=== PATIENT | female | born 1935 | race Caucasian/White ===

== ENCOUNTER 2018-08-10 14:45 | Emergency (ER) | payer MEDICARE, BC ==
[~2018-08-10] VITALS: Ht 154.9 cm; Wt 68.9 kg
[~2018-08-10 14:45] MED LIST: ALENDRONATE SOD70 MG PO; B-122500 MCG PO; CALCIUM 500+D1 EACH PO; CELEBREX100 MG PO; CENTRUM SILVER1 EAC3; CYMBALTA30 MG PO; DEXILANT60 MG PO; FUROSEMIDE40 MG PO; GAVISCON 80-141 EACH; KEFLEX500 MG PO; LASIX20 MG PO; METHIMAZOLE5 MG PO; MULTAQ 400MG T400 MG PO; MULTAQ400 MG PO; TOVIAZ8 MG PO; VITAMIN D400 UNIT PO; XARELTO10 MG PO
--- OUTSIDE RECORDS SUMMARY | 2018-08-10 14:48 | XMS REPORT ---
Author Author [facility] Address Unknown Phone Unavailable Care Team Providers Care Manufacturing Team Leader Name Role Phone Leticia FREGOSO Unavailable Unavailable Problems This patient has no known problems. Allergies, Adverse Reactions, Alerts This patient has no known allergies or adverse reactions. Medications This patient has no known medications. Results Test Description Test Time Test Comments Text Results Atomic Results Result Comments CT BRAIN WO [facility] [address] [address] Patient Name: JUDIT MUELLER MR #: [id number] : 1935 Age/Sex: 81/F Req #: [id number] Adm Physician: Ordered by: TERRI EDGAR FORENSIC MATERIALS ENGINEER Report #: [id number] Location: ER Room/Bed: Procedure: [id number] CT/CT BRAIN WO Exam Date: 05/12/17 Exam Time: 1711 REPORT STATUS: Signed Examination: CT BRAIN WITHOUT CONTRAST History:Falls. Head injury. Comparison studies:Head CT performed May 30, 2016. Technique: Axial images were obtained from the skull base to the vertex. Coronal and sagittal images reconstructed from the axial data. Intravenous contrast: None Findings: Scalp: No abnormalities. Bones: No fractures, blastic or lytic lesions. Brain sulci: Mild volume loss or age. Ventricles: No hydrocephalus. Extra-axial space: No abnormalities. Parenchyma: Again demonstrated are patchy areas of hypoattenuation in the periventricular and subcortical white matter, nonspecific. No masses, hemorrhage, or acute cortical based vascular insults. Sellar/suprasellar region: No abnormalities. Craniocervical junction: Patent foramen magnum. No Chiari one malformation. Incidental findings: Atherosclerotic calcification of the cavernous and supraclinoid internal carotid and V4 segments of the bilateral vertebral arteries.. Impression: 1. No new or acute intracranial abnormalities. No change from prior head CT performed May 30, 2016. 2. Unchanged moderate chronic microvascular ischemic change. 3. Unchanged mild volume loss. Signed by: Dr. Margaux Dillon M.D. on 05/12/2017 5:37 PM Dictated By: MARGAUX FISHMAN MD 36 Transcribed By: CARLOS on 05/12/171736 COPY TO: TERRI EDGAR NP CT MAXIO FAC/PARANAS WO [place] [address] Patient Name: JUDIT MUELLER MR #: [id number] : 1935 Age/Sex: 81/F Req #: [id number] Adm Physician: Ordered by: TERRI EDGAR NP Report #: [id number] Location: ER Room/Bed: Procedure: [id number] CT/CT MAXIO FAC/PARANAS WO Exam Date: 05/12/17 Exam Time: 1711 REPORT STATUS: Signed Examination: CT Face without Contrast History:Fall. Facial injury. Comparison studies: None Technique: Axial images were obtained through the maxillofacial region. Coronal and sagittal reconstructions obtained from the axial data. Intravenous contrast: None Findings: Soft tissues: No abnormalities. Bones: No fractures or bony abnormalities. Orbits: Globes: Intact Extra or intraconal abnormalities: None. Paranasal sinuses: Mild inflammatory mucosal thickening of the left maxillary sinus. Nasal cavity: Patent. No septal deviation. IMPRESSION: 1. No acute facial abnormality. 2. Mild inflammatory mucosal thickening of the left maxillary sinus. Signed by: Dr. Margaux Dillon M.D. on 05/12/2017 5:38 PM Dictated By: MARGAUX FISHMAN MD 37 Transcribed By: CARLOS on 05/12/171737 COPY TO: TERRI EDGAR FORENSIC MATERIALS ENGINEER PELVIS AP 1-2 VIEWS [place] [address] Patient Name: JUDIT MUELLER MR #: [id number] : 1935 Age/Sex: 81/F Req #: [id number] Adm Physician: Ordered by: TERRI EDGAR FORENSIC MATERIALS ENGINEER Report #: [id number] Location: ER Room/Bed: Procedure: [id number] DX/PELVIS AP 1-2 VIEWS Exam Date: 05/12/17 Exam Time: 1700 REPORT STATUS: Signed PROCEDURE: X-RAY PELVIS, AP VIEW COMPARISON: None. INDICATIONS: FALL FINDINGS: There are no fractures, dislocations, lytic or blastic lesions. 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 Degenerative changes at L4-L5 and L5-S1 incidentally noted. CONCLUSION: No acute osseous abnormality. Kal Chatterjee M.D. Dictated by: Kal Chatterjee M.D. on 05/12/2017 at 18:00 Electronically approved by: Kal Chatterjee M.D. on 05/12/2017 at 18:00 Dictated By: ROMINA CHATTERJEE MD, MD 99 Transcribed By: CHAS on 05/12/17 1800 COPY TO: TERRI EDGAR NP CT CERVICAL SPINE WO [place] [address] Patient Name: JUDIT MUELLER MR #: [id number] : 1935 Age/Sex: 81/F Req #: [id number] Adm Physician: Ordered by: TERRI EDGAR NP Report #: [id number] Location: ER Room/Bed: Procedure: [id number] CT/CT CERVICAL SPINE WO Exam Date: 05/12/17 Exam Time: 1711 REPORT STATUS: Signed Examination: CT CERVICAL SPINE WITHOUT CONTRAST HISTORY:Fall. Neck pain. COMPARISON:None. TECHNIQUE: Multidetector helical axial images were obtained without contrast from the foramen magnum to T1. Coronal and sagittal reformatted images were done. Bone and soft tissue windows were evaluated. FINDINGS: Alignment:Normal alignment with reversal of normal lordosis centered at C5. Vertebrae: Normal height and density. No acute fracture, infection or neoplasm. Disc space heights: Normal height. Caliber of spinal canal: Developmentally normal. Posterior fossa and craniocervical junction: Foramen magnum patent. No Chiari 1 malformation. Soft tissues: No abnormality. Degenerative changes: Bilateral facet arthropathy from C3 through C6 on the right and C2 through C4 on the left. No disc bulge/ herniation or canal stenosis. Additional findings: None. IMPRESSION: 1. No acute abnormalities. 2. Mild cervical spondylosis, as above. Signed by: Dr. Margaux Dillon M.D. on 05/12/2017 5:52 PM Dictated By: MARGAUX FISHMAN MD 51 Transcribed By: CARLOS on 05/12/171751 COPY TO: TERRI EDGAR NP KNEE LEFT THREE VIEWS [place] [address] Patient Name: JUDIT MUELLER MR #: [id number] : 1935 Age/Sex: 81/F Req #: [id number] Adm Physician: Ordered by: TERRI EDGAR NP Report #: [id number] Location: ER Room/Bed: Procedure: [id number] DX/KNEE LEFT THREE VIEWS Exam Date: 05/12/17 Exam Time: 1700 REPORT STATUS: Signed PROCEDURE: X-RAY LEFT KNEE, THREE OR MORE VIEWS COMPARISON: None. INDICATIONS: FALL FINDINGS: There are no fractures, subluxations, lytic or blastic lesions. There is no evidence of a joint effusion. Atherosclerotic calcification of the femoral and popliteal arteries. CONCLUSION: No acute osseous abnormality. Kal Chatterjee M.D. Dictated by: Kla Chatterjee M.D. on 05/12/2017 at 18:01 Electronically approved by: Kal Chatterjee M.D. on 05/12/2017 at 18:01 Dictated By: ROMINA CHATTERJEE MD, MD 00 Transcribed By: CHAS on 05/12/171800 COPY TO: TERRI EDGAR NP CHEST SINGLE (PORTABLE) [place] [address] Patient Name: JUDIT MUELLER MR #: [id number] : 1935 Age/Sex: 81/F Req #: [id number] Adm Physician: Ordered by: TERRI EDGAR FORENSIC MATERIALS ENGINEER Report #: [id number] Location: ER Room/Bed: Procedure: [id number] DX/CHEST SINGLE (PORTABLE) Exam Date: 05/12/17 Exam Time: 1700 REPORT STATUS: Signed PROCEDURE: A single AP view of the chest. COMPARISON: [facility], DX, CHEST SINGLE (PORTABLE), 05/30/2016, 19:27. INDICATIONS: FALL FINDINGS: Lines/tubes: None. Dual-lead left- sided cardiac pacemaker. Lungs: The lungs are well inflated and clear. There is no evidence of pneumonia or pulmonary edema. Pleura: There is no pleural effusion or pneumothorax. Heart and mediastinum: The heart and the mediastinum are unremarkable. Atherosclerotic calcifications of the thoracic aorta. Bones: No acute bony abnormality. IMPRESSION: 1. No acute cardiopulmonary disease. Kal Chatterjee M.D. Dictated by: Kal Chatterjee M.D. on 05/12/2017 at 18:03 Electronically approved by: Kal Chatterjee M.D. on 05/12/2017 at 18:03 Dictated By: ROMINA CHATTERJEE MD, MD 02 Transcribed By: CHAS on 05/12/171802 COPY TO: TERRI EDGAR NP FOREARM RIGHT [address] [facility] [place] [address] Patient Name: JUDIT MUELLER MR #: [id number] : 1935 Age/Sex: 81/F Req #: [id number] Adm Physician: Ordered by: TERRI EDGAR FORENSIC MATERIALS ENGINEER Report #: [id number] Location: ER Room/Bed: Procedure: [id number] DX/FOREARM RIGHT 2 VIEW Exam Date: 05/12/17 Exam Time: 1700 REPORT STATUS: Signed PROCEDURE: X-RAY RIGHT FOREARM, TWO VIEWS COMPARISON: None. INDICATIONS: PT FELL TODAY FINDINGS: There are no fractures, dislocations, lytic or blastic lesions. Osteopenia. The soft-tissues are unremarkable. CONCLUSION: No acute osseous abnormality. Kal Chatterjee M.D. Dictated by: Kal Chatterjee M.D. on 05/12/2017 at 18:07 Electronically approved by: Kal Chatterjee M.D. on 05/12/2017 at 18:07 Dictated By: ROMINA CHATTERJEE MD, MD 06 Transcribed By: CHAS on 05/12/171806 COPY TO: TERRI EDGAR FORENSIC MATERIALS ENGINEER
--- NOTE | 2018-08-10 18:45 | Diagnostic Imaging Report ---
EXAMINATION: CHEST 2 VIEWS INDICATION: ^CONGESTION ^[id number] ^[id number] COMPARISON: Chest radiograph 05/12/2017 FINDINGS: PA and lateral views TUBES and LINES: Stable position of the dual-lead pacemaker. LUNGS: Lungs are well inflated. Bilateral perihilar and lower lobes. Bronchial wall thickening, more prominent when compared to prior exam. There is no evidence of pneumonia or pulmonary edema. PLEURA: No pleural effusion or pneumothorax. HEART AND MEDIASTINUM: The cardiomediastinal silhouette is unremarkable. Mild atherosclerotic calcifications of the aortic arch. BONES AND SOFT TISSUES: No acute osseous lesion. Soft tissues are unremarkable. UPPER ABDOMEN: No free air under the diaphragm. Linear hyperdensities in the left upper quadrant and are unchanged. IMPRESSION: Increased bilateral hilar and lower lobe peribronchial wall thickening suggestive of reactive airway disease or viral infection. Signed by: Dr. Charla Donald M.D. on 08/10/2018 6:42 PM
[2018-08-10] MEDS ORDERED: ALBUTEROL/IPRATROPIUM 3 ML NEB NEB ONE (21:00)
== END 2018-08-10 21:55 | disposition home or self-care (01) ==
LOC: ER 14:45
DX: R05 Cough (principal); J20.9 Acute bronchitis, unspecified; I10 Essential (primary) hypertension; E11.9 Type 2 diabetes mellitus without complications; E07.9 Disorder of thyroid, unspecified; K21.9 Gastro-esophageal reflux disease without esophagitis; F41.9 Anxiety disorder, unspecified; F32.9 Major depressive disorder, single episode, unspecified; Z98.0 Intestinal bypass and anastomosis status
CPT/HCPCS: 71046; 99283

== ENCOUNTER 2019-04-18 08:03 | Emergency (ER) | payer MEDICARE, BC ==
[~2019-04-18] VITALS: Ht 154.9 cm; Wt 68.9 kg
--- OUTSIDE RECORDS SUMMARY | 2019-04-18 08:06 | XMS REPORT | Continuity of Care Document ---
Author Author [facility] Address Unknown Phone Unavailable Care Team Providers Care Senior Mortgage Underwriter Name Role Phone Identiv Information Exchange Unavailable Unavailable Problems Problem Status Onset Date Classification Date Reported Comments Source Confusion associated with infection Active Problem 08/11/2018 [facility] Renal insufficiency Active Problem 08/11/2018 [facility] Urinary tract infection Active Problem 08/11/2018 [facility] Medications Medication Details Route Status Patient Instructions Ordering Provider Order Date Source Dronedarone (Multaq 400MG Tablets*) 400 Mg Tab, 400 Mg Oral Twice A Day Active 05/12/2017 [facility] Celecoxib (Celebrex*) 100 Mg Capsule, 200 Mg Oral Daily Active 06/02/2016 [facility] Cephalexin Monohydrate (Keflex) 500 Mg Capsule, 500 Mg Oral Every 12 Hours Active [place] 06/02/2016 [facility] Furosemide (Lasix) 20 Mg Tablet, 20 Mg Oral Every Other Day Active 06/02/2016 [facility] Alendronate Sodium 70 Mg Tablet Mondays Active [facility] Calcium Carbonate/Vitamin D3 (Calcium 500+D Tablet Chew) 1 Each Tab.chew Three Times A Day Active [facility] Cholecalciferol (Vitamin D3) (Vitamin D) 400 Unit Capsule Daily Active [facility] Cyanocobalamin (Vitamin B-12) (B-12) 2,500 Mcg Tab.subl Daily Active [facility] Dexlansoprazole (Dexilant) 60 Mg Cap. Twice A Day Active THERAPEUTIC INTERCHANGE WITH PROTONIX PER [facility] Dronedarone Hydrochloride (Multaq) 400 Mg Tablet Twice A Day Active [facility] Duloxetine Hcl (Cymbalta) 30 Mg Capsule. Twice A Day [facility] Fesoterodine Fumarate (Toviaz) 8 Mg Tab.er.24h Daily [facility] Furosemide 40 Mg Tablet Every Other Day [facility] Methimazole 5 Mg Tablet Daily [facility] Mg Trisilicate/Alh/Nahco3/Aa (Gaviscon 80-14.2 Mg Tab Chew) 1 Each Tab.chew [facility] Mu-Vits-Min Th/Lycopene/Lutein (Centrum Silver Tablet) 1 Each Tablet [facility] Rivaroxaban (Xarelto) 10 Mg Tablet Bedtime [facility] Allergies, Adverse Reactions, Alerts No Known Medication Allergies Immunizations No Data Provided for This Section Results No Data Provided for This Section Pathology Reports No Data Provided for This Section Diagnostic Reports No Data Provided for This Section Consultation Notes No Data Provided for This Section Discharge Summaries No Data Provided for This Section History and Physicals No Data Provided for This Section Vital Signs No Data Provided for This Section Encounters Location Location Details Encounter Type Encounter Number Reason For Visit Attending Provider ADM Date DC Date Status Source Departed Emergency Room [id number] RAFAEL TOWNSEND MD 08/10/2018 08/10/2018 [facility] Procedures Procedure Code Date Perfomer Comments Source X-ray of chest, two views [id number] 08/10/2018 [facility] Assessment and Plan No Data Provided for This Section Plan of Care Plan of Care Date Source Discharge Date 08/10/18 9:55pm Disposition HOME, SELF-CARE Condition at Discharge Stable Instructions/Education Provided Bronchitis (Acute) - Adult Prescriptions See Medication Section Referrals LETY DE LA TORRE MD Order Date: Call for an appointment Address: [address] [place] [address] Additional Instructions/Education Call for follow up appointment to see your medical provider. Take over the counter Motrin or Tylenol medication as needed for comfort. If prescribed medication on discharge, take the medication as prescribed and adhere to the warnings given for medication. discussed at the bedside, drink fluids, rest and return to the emergency department for any fever, shortness of breath, chest pain, abdominal pain, trouble handling oral secretions or any new concerns. 08/10/2018 [facility] Social History Social History Date Source Social History Problem Response Recorded Date/Time Onset Date Status Hx Psychiatric Problems No 05/31/2016 1:50am Not Applicable Not Applicable Hx Eating Disorder No 05/31/2016 1:50am Not Applicable Not Applicable Hx Substance Use Disorder No 05/31/2016 1:50am Not Applicable Not Applicable Hx Depression Yes 05/31/2016 1:50am Not Applicable Not Applicable Hx Alcohol Use No 05/31/2016 1:50am Not Applicable Not Applicable Hx Substance Use Treatment No 05/31/2016 1:50am Not Applicable Not Applicable Hx Physical Abuse No 05/31/2016 1:50am Not Applicable Not Applicable Smoking Status Start Date Stop Date Former smoker 08/10/2018 [facility] Family History No Data Provided for This Section Advance Directives Order Name Results Value Date Source Advance Directives Advance Directives Directive Response Recorded Date/Time Does the patient have an advance directive? Yes 08/10/18 7:20pm If yes, is advance directive on file with [facility]? No 05/31/16 1:04am If not on file with [facility] will patient provide a copy? Yes 08/10/18 7:20pm Do you have a Directive to Physician? Yes 08/10/18 7:21pm Do you have a Medical Power of Radio Equipment Installer? Yes 08/10/18 7:21pm Do you have an out of hospital Do Not Resuscitate Order? Yes 08/10/18 7:21pm Do you have any special needs we should be aware of? Yes 08/10/18 7:21pm Do you have a support person here with you today? Yes 08/10/18 7:21pm Did patient receive Notice of Privacy Practices? Yes 08/10/18 7:21pm Did patient receive patient rights and responsibilities? Yes 08/10/18 7:21pm 08/10/2018 [facility] Functional Status No Data Provided for This Section
[2019-04-18] MEDS ORDERED: DEXAMETHASONE SOD PHOS 10 MG/1 ML VIAL IM ONE (08:30)
[2019-04-18] MEDS ORDERED: GABAPENTIN 300 MG CAP PO ONE (09:00)
[2019-04-18] MEDS ORDERED: HYDROCODONE/APAP 5MG-325MG TAB PO ONE (09:00)
[2019-04-18] MEDS ORDERED: KETOROLAC TROMETHAMINE 30 MG/ML VIAL IM ONE (09:00)
--- NOTE | 2019-04-18 10:22 | Diagnostic Imaging Report ---
Lumbar spine series, 3 views. History: Low back pain, worse to the right side. Comparison: None available. Discussion: The paraspinal soft tissues are unremarkable. The bones are diffusely osteopenic. The alignment of the lumbar spine is normal. There is no evidence of fracture, spondylolisthesis, or spondylolysis. There is diffuse moderate disc space narrowing and osteophytosis. IMPRESSION: Diffuse degenerative changes of the lumbar spine. No acute osseous abnormality. Signed by: Tigre Mckinley on 04/18/2019 10:19 AM
[2019-05-04] MEDS ORDERED: Lidocaine Patch TP (16:26)
== END 2019-04-18 11:14 | disposition home or self-care (01) ==
LOC: ER 08:03
DX: M54.41 Lumbago with sciatica, right side (principal); M79.7 Fibromyalgia; I10 Essential (primary) hypertension; E11.9 Type 2 diabetes mellitus without complications; I48.91 Unspecified atrial fibrillation; E03.9 Hypothyroidism, unspecified; F41.9 Anxiety disorder, unspecified; K21.9 Gastro-esophageal reflux disease without esophagitis
CPT/HCPCS: 72100; 99283; J1100; J1885

== ENCOUNTER 2019-04-29 16:11 | Inpatient (IN) | payer MEDICARE, BC ==
[~2019-04-29] VITALS: Ht 154.9 cm; Wt 72.6 kg
[2019-04-29] MEDS: SODIUM CHLORIDE 0.9% 1000ML 1,000 ML IV SCH ×2 (14:34→22:30)
--- OUTSIDE RECORDS SUMMARY | 2019-04-29 16:16 | XMS REPORT | Continuity of Care Document ---
Author Author [facility] Address Unknown Phone Unavailable Care Team Providers Care Gm Mobile Name Role Phone Voalte Information Exchange Unavailable Unavailable Problems Problem Status Onset Date Classification Date Reported Comments Source Confusion associated with infection Active Problem 04/18/2019 [facility] Renal insufficiency Active Problem 04/18/2019 [facility] Urinary tract infection Active Problem 04/18/2019 [facility] Medications Medication Details Route Status Patient Instructions Ordering Provider Order Date Source Dronedarone (Multaq 400MG Tablets*) 400 Mg Tab, 400 Mg Oral Twice A Day Active 05/12/2017 [facility] Celecoxib (Celebrex*) 100 Mg Capsule, 200 Mg Oral Daily Active 06/02/2016 [facility] Cephalexin Monohydrate (Keflex) 500 Mg Capsule, 500 Mg Oral Every 12 Hours Active [facility] 06/02/2016 [facility] Furosemide (Lasix) 20 Mg Tablet, 20 Mg Oral Every Other Day Active 06/02/2016 [facility] Alendronate Sodium 70 Mg Tablet Mondays Active [facility] Calcium Carbonate/Vitamin D3 (Calcium 500+D Tablet Chew) 1 Each Tab.chew Three Times A Day Active [facility] Cholecalciferol (Vitamin D3) (Vitamin D) 400 Unit Capsule Daily Active [facility] Cyanocobalamin (Vitamin B-12) (B-12) 2,500 Mcg Tab.subl Daily Active [facility] Dexlansoprazole (Dexilant) 60 Mg Cap. Twice A Day Active THERAPEUTIC INTERCHANGE WITH PROTONIX PER [facility] Dronedarone Hydrochloride (Multaq) 400 Mg Tablet Twice A Day Active [facility] Duloxetine Hcl (Cymbalta) 30 Mg Capsule. Twice A Day Active [facility] Fesoterodine Fumarate (Toviaz) 8 Mg Tab.er.24h Daily [facility] Furosemide 40 Mg Tablet Every Other Day [facility] Methimazole 5 Mg Tablet Daily [facility] Mg Trisilicate/Alh/Nahco3/Aa (Gaviscon 80-14.2 Mg Tab Chew) 1 Each Tab.chew Active [facility] Mu-Vits-Min Th/Lycopene/Lutein (Centrum Silver Tablet) 1 Each Tablet Active [facility] Rivaroxaban (Xarelto) 10 Mg Tablet Bedtime Active [facility] Allergies, Adverse Reactions, Alerts No Known Medication [...] DC Date Status Source Departed Emergency Room [id number] RAFAEL TOWNSEND MD 08/10/2018 08/10/2018 [facility] Departed Emergency Room [id number] RAFAEL TOWNSEND MD 04/18/2019 04/18/2019 [facility] Procedures Procedure Code Date Perfomer Comments Source X-ray of chest, two views [id number] 08/10/2018 [facility] Assessment and Plan No Data Provided for This Section Plan of Care Plan of Care Date Source Discharge Date 04/18/19 11:14am Disposition HOME, SELF-CARE Condition at Discharge Stable Instructions/Education Provided Sciatica Prescriptions See Medication Section Referrals LETY DE LA TORRE MD Order Date: Call for an appointment Address: [address] [place] [address] 04/18/2019 [facility] Discharge Date 08/10/18 9:55pm Disposition HOME, SELF-CARE Condition at Discharge Stable Instructions/Education Provided Bronchitis (Acute) - Adult Prescriptions See Medication Section Referrals LETY DE LA TORRE MD Order Date: Call for an appointment Address: [address] [place] [address] Additional Instructions/Education Call for follow [...] oral secretions or any new concerns. 08/10/2018 [facility] Social History Social History Date Source [...] Applicable Smoking Status Start Date Stop Date Never Smoker 04/18/2019 [facility] Family History No Data Provided for This Section Advance Directives Order Name Results Value Date Source Advance Directives Advance Directives Directive Response Recorded Date/Time Does the patient have an advance directive? No 04/18/19 8:30am If yes, is advance directive on file with [facility]? No 05/31/16 1:04am If not on file with [facility] will patient provide a copy? No 04/18/19 8:30am Do you have a Directive to Physician? No 04/18/19 8:30am Do you have a Medical Power of Retail Visual Merchandiser? No 04/18/19 8:30am Do you have an out of hospital Do Not Resuscitate Order? No 04/18/19 8:30am Do you have any special needs we should be aware of? No 04/18/19 8:30am Do you have a support person here with you today? No 04/18/19 8:30am Did patient receive Notice of Privacy Practices? No 04/18/19 8:30am Did patient receive patient rights and responsibilities? No 04/18/19 8:30am 04/18/2019 [facility] Advance Directives Advance Directives Directive Response Recorded Date/Time Does the patient have an advance directive? Yes 08/10/18 7:20pm If yes, is advance directive on file with [facility]? No 05/31/16 1:04am If not on file with [facility] will patient provide a copy? Yes 08/10/18 7:20pm Do you have a Directive to Physician? Yes 08/10/18 7:21pm Do you have a Medical Power of Retail Visual Merchandiser? Yes 08/10/18 7:21pm Do you have an [...] rights and responsibilities? Yes 08/10/18 7:21pm 08/10/2018 [facility] Functional Status No Data Provided for This Section
[2019-04-29 16:50] LABS: BILIRUBIN,URINE NEGATIVE (NEGATIVE); CLARITY,URINE SL CLOUDY (CLEAR); COLOR,URINE YELLOW (YELLOW); KETONES,URINE NEGATIVE (NEGATIVE); LEUKOCYTE ESTERASE ,URINE LARGE (NEGATIVE); NITRITE,URINE NEGATIVE (NEGATIVE); PROTEIN,URINE DIPSTICK NEGATIVE (NEGATIVE); URINE UROBILINOGEN 0.2 mg/dL (0.2 - 1)
[2019-04-29 17:04] LABS: BACTERIA,URINE MANY /HPF
[2019-04-29 17:05] LABS: AMORPHOUS SEDIMENT,URINE FEW (FEW)
--- NOTE | 2019-04-29 17:38 | NUR ---
PATIENT TO ROOM 11 AT THIS TIME
[2019-04-29 18:26] LABS: BASOPHILS % 0.2 % (0.0-1.0); EOSINOPHILS # (AUTO) 0.2 (0.0-0.4); EOSINOPHILS % 2.6 % (0.0-6.0); HEMATOCRIT 44.6 % (34.2-44.1); HEMOGLOBIN 14.5 g/dL (12.0-16.0); LYMPHOCYTES # (AUTO) 2.3 (1.0-3.2); LYMPHOCYTES % 25.4 % (18.0-39.1); MEAN CORPUSCULAR HEMOGLOBIN 31.1 pg (28-32); MEAN CORPUSCULAR HGB CONC 32.5 g/dL (31-35); MEAN CORPUSCULAR VOLUME 95.7 fL (81-99); MONOCYTES # (AUTO) 0.7 (0.2-0.8); NEUTROPHILS # (AUTO) 5.8 (2.1-6.9); NEUTROPHILS % 63.3 % (38.7-80.0); PLATELET COUNT 245 x10e3/uL (140-360); RED BLOOD COUNT 4.66 x10e6/uL (3.6-5.1); RED CELL DISTRIBUTION WIDTH 13.9 % (11.7-14.4)
[2019-04-29 18:36] LABS: INR 0.9; PROTHROMBIN TIME 12.6 seconds (11.9-14.5)
[2019-04-29 18:37] LABS: PARTIAL THROMBOPLASTIN TIME 25.8 seconds (23.8-35.5)
[2019-04-29 18:44] LABS: ALBUMIN 3.9 g/dL (3.5-5.0); ALBUMIN/GLOBULIN RATIO 1.2 (0.8-2.0); ANION GAP 16.9 mmol/L (8-16); CALCIUM 12.5 mg/dL (8.4-10.2); CREATININE, SERUM 1.5 mg/dL (0.57-1.11); MAGNESIUM 1.9 MG/DL (1.3-2.1); POTASSIUM 3.9 mmol/L (3.5-5.1)
[2019-04-29 18:52] LABS: CREATINE KINASE MB 0.8 ng/mL (0-5.0)
[2019-04-29] MEDS ORDERED: SODIUM CHLORIDE 0.9% 1000ML 1,000 ML IV SCH (19:16)
[2019-04-29] MEDS ORDERED: CEFEPIME 1GM/NS 0.9% 50 ML 50 ML IV SCH (19:30)
[2019-04-29] MEDS ORDERED: MEROPENEM 1GM 100 ML IV SCH (20:00)
--- NOTE | 2019-04-29 20:06 | Diagnostic Imaging Report ---
EXAMINATION: Head CT without contrast. HISTORY:Confusion, UTI. COMPARISON:CT brain from 05/12/2017. TECHNIQUE: Multidetector axial images were obtained from the foramen magnum to the vertex without contrast. The images were reconstructed using brain and bone algorithms. Thin section brain images were reformatted into coronal and sagittal planes. Dose modulation, iterative reconstruction, and/or weight based adjustment of the mA/kV was utilized to reduce the radiation dose to as low as reasonably achievable. Intravenous contrast: None IMAGE QUALITY: Acceptable. FINDINGS: Skull/scalp: No lytic or blastic. lesions. No surgical changes. Parenchyma: Unchanged nonspecific bilateral frontoparietal confluent and patchy white matter hypodensity are likely related to small vessel ischemic changes. No acute hemorrhage, mass or acute major vascular territorial infarct. Arteries: No density suggestive of thrombosis. Atherosclerotic calcification in bilateral carotid siphon and V4 segment of left vertebral artery. Dural sinuses: No abnormal density suggestive of thrombosis. Ventricles: Mild compensated dilatation due to volume loss. No hydrocephalus. Extra-axial spaces: No abnormal density. Brain volume: Generalized age-related cerebral volume loss. Craniocervical junction: No mass, Chiari malformation, or basilar invagination. Sella: No mass. Paranasal/mastoid sinuses: Imaged portions unremarkable. IMPRESSION: No acute intracranial abnormality. No change since CT brain from 05/12/2017. Chronic findings: 1. Generalized age-related cerebral volume loss. 2. Moderate supratentorial white matter microvascular ischemic changes. Signed by: Dr. Inga Marrero M.D. on 04/29/2019 8:02 PM
[2019-04-29] MEDS ORDERED: TOVIAZ8 MG PO (20:42)
[2019-04-29] MEDS ORDERED: ALBUTEROL0.63 MG/3 INH (20:42)
[2019-04-29] MEDS ORDERED: MIDODRINE HCL2.5 MG PO (20:42)
[2019-04-29] MEDS ORDERED: COLACE100 MG PO (20:42)
[2019-04-29] MEDS ORDERED: METOPROLOL SUCC50 MG PO (20:42)
[2019-04-29] MEDS: HYDROCODONE/APAP 5MG-325MG TAB PO PRN (21:00)
--- OUTSIDE RECORDS SUMMARY | 2019-04-29 21:30 | XMS REPORT | Continuity of Care Document ---
Author Author [email or web address] Address Unknown Phone Unavailable Care Team Providers Care Erecting Engineer Name Role Phone [employer] Unavailable Unavailable Problems Problem Status Onset Date Classification Date Reported Comments Source Confusion associated with infection Active Problem 04/18/2019 [facility] Renal insufficiency Active Problem 04/18/2019 [facility] Urinary tract infection Active Problem 04/18/2019 [facility] Medications Medication Details Route Status Patient Instructions Ordering Provider Order Date Source Dronedarone (Multaq 400MG Tablets*) 400 Mg Tab, 400 Mg Oral Twice A Day Active 05/12/2017 [facility] Celecoxib (Celebrex*) 100 Mg Capsule, 200 Mg Oral Daily Active 06/02/2016 [facility] Cephalexin Monohydrate (Keflex) 500 Mg Capsule, 500 Mg Oral Every 12 Hours Active [place] 06/02/2016 [facility] Furosemide (Lasix) 20 Mg Tablet, 20 Mg Oral Every Other Day Active 06/02/2016 [facility] Alendronate Sodium 70 Mg Tablet Mondays Active [facility] Calcium Carbonate/Vitamin D3 (Calcium 500+D Tablet Chew) 1 Each Tab.chew Three Times A Day Active [facility] Cholecalciferol (Vitamin D3) (Vitamin D) 400 Unit Capsule Daily Active [facility] Cyanocobalamin (Vitamin B-12) (B-12) 2,500 Mcg Tab.subl Daily Active [facility] Dexlansoprazole (Dexilant) 60 Mg Cap. Twice A Day Active THERAPEUTIC INTERCHANGE WITH PROTONIX PER [facility] Dronedarone Hydrochloride (Multaq) 400 Mg Tablet Twice A Day Active [facility] Duloxetine Hcl (Cymbalta) 30 Mg Capsule. Twice A Day Active [facility] Fesoterodine Fumarate (Toviaz) 8 Mg Tab.er.24h Daily [facility] Furosemide 40 Mg Tablet Every Other Day [facility] Methimazole 5 Mg Tablet Daily [facility] Mg Trisilicate/Alh/Nahco3/Aa (Gaviscon 80-14.2 Mg Tab Chew) 1 Each Tab.chew Active [facility] Mu-Vits-Min Th/Lycopene/Lutein (Centrum Silver Tablet) 1 Each Tablet Active [facility] Rivaroxaban (Xarelto) 10 Mg Tablet Bedtime Active [facility] Allergies, Adverse Reactions, Alerts No Known Medication [...] DC Date Status Source Departed Emergency Room [id number] RAFAEL TOWNSEND MD 08/10/2018 08/10/2018 [facility] Departed Emergency Room [id number] RAFAEL TOWNSEND MD 04/18/2019 04/18/2019 [facility] Procedures Procedure Code Date Perfomer Comments Source X-ray of chest, two views [id number] 08/10/2018 [facility] Assessment and Plan No Data Provided for This Section Plan of Care Plan of Care Date Source Discharge Date 04/18/19 11:14am Disposition HOME, SELF-CARE Condition at Discharge Stable Instructions/Education Provided Sciatica Prescriptions See Medication Section Referrals LETY DE LA TORRE MD Order Date: Call for an appointment Address: [address] [place] [id number] 04/18/2019 [facility] Discharge Date 08/10/18 9:55pm Disposition HOME, SELF-CARE Condition at Discharge Stable Instructions/Education Provided Bronchitis (Acute) - Adult Prescriptions See Medication Section Referrals LETY DE LA TORRE MD Order Date: Call for an appointment Address: [address] [place] [address] Additional Instructions/Education Call for follow [...] oral secretions or any new concerns. 08/10/2018 [facility] Social History Social History Date Source Social [...] Start Date Stop Date Never Smoker 04/18/2019 [facility] Family History No Data Provided for This Section Advance Directives Order Name Results Value Date Source Advance Directives Advance Directives Directive Response Recorded Date/Time Does the patient have an advance directive? No 04/18/19 8:30am If yes, is advance directive on file with [facility]? No 05/31/16 1:04am If not on file with [facility] will patient provide a copy? No 04/18/19 8:30am Do you have a Directive to Physician? No 04/18/19 8:30am Do you have a Medical Power of Preparer Samples And Repairs? No 04/18/19 8:30am Do you have an [...] rights and responsibilities? No 04/18/19 8:30am 04/18/2019 [facility] Advance Directives Advance Directives Directive Response Recorded Date/Time Does the patient have an advance directive? Yes 08/10/18 7:20pm If yes, is advance directive on file with [facility]? No 05/31/16 1:04am If not on file with [facility] will patient provide a copy? Yes 08/10/18 7:20pm Do you have a Directive to Physician? Yes 08/10/18 7:21pm Do you have a Medical Power of Preparer Samples And Repairs? Yes 08/10/18 7:21pm Do you have an [...] rights and responsibilities? Yes 08/10/18 7:21pm 08/10/2018 [facility] Functional Status No Data Provided for This Section
[2019-04-29] MEDS ORDERED: ONDANSETRON HCL INJ 2MG/ML 2ML 2 MG/ML VIAL IV PRN (21:45)
--- NOTE | 2019-04-29 22:00 | NUR ---
Pt admitted to room 294 via stretcher from the emergency room. Vital signs stable. Alert to name, place, and diagnosis: UTI. Pt c/o lower back pain upon transfer to bed from stretcher. 20g IV left AC patent. History assessment obtained from Pt/daughter. Daughter to stay with mother all night. Pt/daughter oriented to room. Pt/daughter instructed to call for assistance when needed.
[2019-04-29] MEDS: MEROPENEM 1GM 100 ML IV SCH (22:30)
[2019-04-29 22:50] VITALS: BP 160/79
[2019-04-29 23:06] VITALS: BP 160/79
[2019-04-30] VITALS: BP 160/79
[2019-04-30 04:00] VITALS: BP 135/68
[2019-04-30] MEDS: MEROPENEM 1GM 100 ML IV SCH ×3 (05:28→21:49)
[2019-04-30] MEDS ORDERED: ASPIRIN81 MG (05:43)
[2019-04-30 06:04] LABS: BASOPHILS % 0.3 % (0.0-1.0); EOSINOPHILS # (AUTO) 0.3 (0.0-0.4); EOSINOPHILS % 3.4 % (0.0-6.0); HEMATOCRIT 39.9 % (34.2-44.1); LYMPHOCYTES % 38.6 % (18.0-39.1); MEAN CORPUSCULAR HEMOGLOBIN 31.2 pg (28-32); MEAN CORPUSCULAR HGB CONC 32.6 g/dL (31-35); MEAN CORPUSCULAR VOLUME 95.7 fL (81-99); MONOCYTES # (AUTO) 0.9 (0.2-0.8); MONOCYTES % 11.8 % (4.4-11.3); NEUTROPHILS # (AUTO) 3.5 (2.1-6.9); NEUTROPHILS % 45.4 % (38.7-80.0); PLATELET COUNT 203 x10e3/uL (140-360); RED BLOOD COUNT 4.17 x10e6/uL (3.6-5.1); RED CELL DISTRIBUTION WIDTH 13.8 % (11.7-14.4)
[2019-04-30 06:19] LABS: ANION GAP 13.9 mmol/L (8-16); CALCIUM 12.1 mg/dL (8.4-10.2); CREATININE, SERUM 1.18 mg/dL (0.57-1.11); POTASSIUM 3.9 mmol/L (3.5-5.1)
[2019-04-30] MEDS: HYDROCODONE/APAP 5MG-325MG TAB PO PRN ×4 (06:45→23:33)
--- NOTE | 2019-04-30 06:45 | NUR ---
Pt lying in bed. c/o 8/10 back pain. Admin prn [place]. No acute distress noted. Family at bedside. Call [facility] within reach.
[2019-04-30 07:44] VITALS: BP 144/63
--- NOTE | 2019-04-30 07:45 | NUR ---
RECEIVED PT RESTING DURING BEDSIDE ROUNDS. DAUGHTER AT BEDSIDE.
--- NOTE | 2019-04-30 09:30 | NUR ---
PT GIVEN MEDICATION BY DAUGHTER. I INFORM HER THAT IN THE FUTURE WE WOULD BE GIVING HER MEDICATION; AFTER DR. RUIZ REVIEWS HER HOME MEDS
[2019-04-30 11:54] VITALS: BP 124/63
--- NOTE | 2019-04-30 14:30 | NUR ---
DR. RUIZ TO SEE PT. REVIEW HOME MEDICATION. TALKED WITH DAUGHTER AND DISCUSSED HIS PLANS.
[2019-04-30] MEDS ORDERED: MIDODRINE 2.5 MG TAB PO SCH (15:00)
[2019-04-30 16:08] VITALS: BP 138/66
--- NOTE | 2019-04-30 16:30 | NUR ---
Nutrition Screen Note RD Recommendation for Physician:Continue diet as ordered Plan of Care: RD following, monitoring for tolerance and adequacy Nutrition reason for involvement: Nutrition Risk Trigger - MST Primary Diagnose(s):UTI PMH: Urinary tract infection, nephrolithiasis, diverticulitis status post colon resection in 2003. 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 Ht:61 in Wt:160lb BMI:30.2 kg/m2 IBW:105lb +/-10% RD Assessment: (04/30/2019) Chart reviewed. Labs and meds reviewed. Initial encounter with patient. Pt with a good Po intake [employer]. Eating about 50% o meal tray. Pt has a top denture plate. Denies any difficulty chewing or swallowing. Denies nausea, vomiting or diarrhea. No wt changes Current Diet: CARDIAC DIET Malnutrition Evaluation (04/30/2019) The patient does not meet criteria for a specified degree of malnutrition at this time. Will re-evaluate at follow-up as appropriate. Diet Education Needs Assessment: Diet education not indicated. Nutrition Care Level: Low Signed: Marcin Moore RD, LD, [facility]
[2019-04-30] MEDS: DULOXETINE HCL 30 MG DELAYED RELEASE PO SCH (17:42)
[2019-04-30] MEDS: DOCUSATE SODIUM 100 MG CAP PO SCH ×2 (17:43→21:00)
[2019-04-30] MEDS: ENOXAPARIN SOD INJ 40 MG/0.4 ML SYR SC SCH (17:43)
[2019-04-30] MEDS: DRONEDARONE 400 MG TAB PO SCH (17:43)
[2019-04-30 20:00] VITALS: BP 144/65
--- NOTE | 2019-04-30 20:00 | NUR ---
Received change of shift report from AM nurse. Walking rounds completed.
[2019-04-30] MEDS: SODIUM CHLORIDE 0.9% 1000ML 1,000 ML IV SCH (21:20)
[2019-04-30] MEDS ORDERED: DOCUSATE SODIUM 100 MG CAP PO PRN (22:30)
--- NOTE | 2019-04-30 22:32 | NUR ---
Received change of shift report from AM nurse. Walking rounds completed.
--- NOTE | 2019-04-30 23:02 | NUR ---
IV infiltrated. Restated IV to right upper arm 20G. Patient tolerated well.
--- NOTE | 2019-04-30 23:45 | History and Physical ---
CHIEF COMPLAINT: Urinary tract infection, dysuria. HISTORY OF PRESENT ILLNESS: This is an 83-year-old female, who has a history of hypertension and atrial fibrillation, who is on amiodarone, presented to the emergency room department sent in by her primary care physician due to underlying urinary tract infection. Apparently, the patient was currently on some oral antibiotics, on Ceftin, but the patient continued to have some more dysuria as well as confusion. When the daughter called the primary care office, they told her to come to the emergency room for further evaluation and management. During my evaluation, the patient was alert and oriented x3. She has some baseline confusion as well with some underlying dementia according to the daughter. According to the daughter, she states that her mother is more active than usual, but today she is very weak and seems to be confused despite during my evaluation, she seems to be alert and oriented x3. The UA here seems to be negative, but she was on antibiotics. According to the daughter, the patient had an Enterococcus faecalis on April 22 at the PCP's office. She was able to connect to the portal on the EMR and she showed me that the patient had Enterococcus faecalis greater than 100,000 colonies. We will confirm that by getting the records from the PCP's office. The patient is seen and evaluated at bedside on the medical floor, currently doing well with no other complaints at this time. REVIEW OF SYSTEMS: Pertinent positives: Dysuria. Pertinent negatives: Denies any chest pain, palpitation, nausea, vomiting, diarrhea, hematuria, frequency, urgency, lightheadedness, dizziness, abdominal pain, headaches, shortness of breath, cough, congestion, fever, or any other complaints. The rest of the 14-point review of systems are reviewed with the patient are negative. ALLERGIES: NO KNOWN DRUG ALLERGIES. HOME MEDICATIONS: Albuterol, calcium carbonate with D3, Lasix 40 mg daily, vitamin B12, multivitamin, aspirin, Multaq, Cymbalta, Toviaz, metoprolol, and midodrine. PAST MEDICAL HISTORY: Atrial fibrillation, hypertension, baseline dementia, chronic urinary tract infection. PAST SURGICAL HISTORY: Reports none. FAMILY HISTORY: Hypertension and diabetes. SOCIAL HISTORY: No drugs or alcohol. Does not smoke. Good social support. Has children. PHYSICAL EXAMINATION: VITAL SIGNS: Temperature is 97, pulse 74, respirations 20, blood pressure 144/65, pulse ox 95% on room air. GENERAL: No acute distress. Alert and oriented x3. Cooperative on examination. HEENT: Head is normocephalic and atraumatic. Eyes; pupils are equal, round, and reactive to light bilaterally. Extraocular movements are intact bilaterally. Throat; no evidence of erythema or exudates in the posterior pharynx. Has poor dentition. NECK: Supple. Good range of motion. PULMONARY: Clear to auscultation bilaterally. No wheezing, no rales, no rhonchi, no crackles appreciated. CARDIOVASCULAR: Positive S1 and S2. No murmurs, rubs, or gallops appreciated. ABDOMEN: Soft, nondistended, and nontender to palpation. Bowel sounds present. MUSCULOSKELETAL: Strength is 5/5 throughout. No evidence of any muscle deficits on examination. No weakness appreciated. NEUROLOGIC: Cranial nerves II through XII grossly intact. No evidence of any neurological deficits on exam. SKIN: Intact. Warm to touch. Good cap refill. PSYCHIATRIC: Normal affect and mood. EXTREMITIES: No edema. Good range of motion throughout. LABORATORY DATA: Lab findings show white count 7.6, hemoglobin 13, hematocrit 39, and platelets of 203. Coagulation; PT 12, INR 0.9, PTT 25. Chemistry; sodium 141, potassium 3.9, chloride 102, bicarb 29, anion gap of 13, BUN is 20, creatinine is 1.1, glucose 108, calcium was 12.5, now 12.1. Troponins were negative. Albumin was 3.9. LFTs within normal range. CK 24. Urinalysis shows rbc's 6 to 10, wbc's 11 to 20, many bacteria. MICROBIOLOGY: Urine cultures are pending. Blood cultures, no growth to date x2. IMAGING STUDIES: CT brain was found to be negative. No acute intracranial abnormality seen. IMPRESSION: 1. Metabolic encephalopathy, seems to be back to normal and at baseline, could be secondary to urinary tract infection. 2. Urinary tract infection. 3. History of atrial fibrillation. 4. Hypertension. 5. Generalized weakness and medical debilitation. 6. Chronic back pain. PLAN: At this time, continue with IV Merrem for now. According to the daughter, the urine culture at the PCP's office was Enterococcus faecalis greater than 100,000 colonies. She did show to be on the portal. We will confirm that by calling to PCPs office hopefully on Thursday. If she improves, then we will just discharge her on cephalosporin. Resume same home medications with no changes. She now reports that she has back pain during transport yesterday from transferring from bed to bed. At this time, I did add some pain medications for her. We will get PT and OT as well. She is on Lovenox for DVT prophylaxis and on cardiac diet. In terms of her mentation, she seems alert and oriented x3 on my exam. It could be that she just will need a few more days and monitoring her urine culture closely and see if she improves. Otherwise, we will continue same plan of care. If she does not improve mentally, we will get a Neurology consultation. MD OWEN Schuster/MODJanuary /[id number]
--- NOTE | 2019-04-30 23:52 | NUR ---
Patient c/o pain =6 to right hip. Pain meds given as ordered by MD. Continue monitor.
[2019-05-01] VITALS (7 sets, daily range): BP systolic 120–148; BP diastolic 55–72
--- NOTE | 2019-05-01 01:09 | NUR ---
Patient resting quitly at this time. Continue monitor.
[2019-05-01] MEDS: HYDROCODONE/APAP 5MG-325MG TAB PO PRN (05:07)
[2019-05-01] MEDS: MEROPENEM 1GM 100 ML IV SCH ×3 (05:10→21:03)
[2019-05-01] MEDS: MIDODRINE 2.5 MG TAB PO SCH ×3 (06:00→17:07)
--- NOTE | 2019-05-01 06:18 | NUR ---
No noted changes in patient condition. Continue monitor.
[2019-05-01] MEDS: DRONEDARONE 400 MG TAB PO SCH ×2 (09:47→17:06)
[2019-05-01] MEDS: METOPROLOL SUCCINATE 50 MG TAB XL PO SCH (09:47)
[2019-05-01] MEDS: ASPIRIN 81 MG CHEW TAB PO SCH (09:48)
[2019-05-01] MEDS: DULOXETINE HCL 30 MG DELAYED RELEASE PO SCH ×2 (09:48→17:06)
[2019-05-01] MEDS: ACETAMINOPHEN 325 MG TAB PO PRN ×2 (10:15→18:37)
--- NOTE | 2019-05-01 15:42 | Diagnostic Imaging Report ---
CT of the pelvis was obtained WITHOUT contrast. TECHNIQUE: Standard departmental protocols were used. Sagittal and coronal reformations were obtained. HISTORY: UTI, pain COMPARISON: None. FINDINGS: Bones: Diffusely decreased mineralization of the osseous structures limits bone detail. No acute displaced fracture. Nonaggressive subcentimeter slight density in the left iliac bone, likely a small bone island. Joints: Mild to moderate scattered degenerative changes. Soft tissues: Diffuse scattered atherosclerotic vascular calcifications. Minimal nonspecific superficial soft tissue edema. IMPRESSION: 1. No acute CT abnormality. 2. Diffuse osseous demineralization. Signed by: Dr. Roland Oglesby D.O., M.M.M. on 05/01/2019 3:39 PM
[2019-05-01] MEDS: SODIUM CHLORIDE 0.9% 1000ML 1,000 ML IV SCH (17:07)
[2019-05-01] MEDS: ENOXAPARIN SOD INJ 40 MG/0.4 ML SYR SC SCH (17:07)
--- NOTE | 2019-05-01 19:46 | NUR ---
Received change of shift report from AM nurse. Walking rounds completed. Patient laying in bed. Continue to c/o a LEACH with day shift nurse tx with tylenol about one hour ago. Given cool towel to head. Continue monitor.
--- NOTE | 2019-05-01 22:27 | Diagnostic Imaging Report ---
History: Low back pain Comparison studies: X-ray lumbar spine from 04/18/2019. Technique: Axial images were obtained through the lumbar spine from T12-S1. Coronal and sagittal images reconstructed from the axial data. Dose modulation, iterative reconstruction, and/or weight based adjustment of the mA/kV was utilized to reduce the radiation dose to as low as reasonably achievable. Intravenous contrast: None Findings: The usual 5 non-rib bearing lumbar vertebral bodies are present. Alignment: Mild straightening of lumbar lordosis is either positional or due to muscle spasm. Mild levocurvature of lumbar spine. Soft tissues: Atherosclerotic calcification in abdominal aorta and its branches. 1 cm right renal calculus is partially visualized. A 1.6 x 1.4 cm predominantly hyperdense , exophytic lesion with focal peripheral calcification in left renal parenchyma is partially visualized. Moderate dilatation of bilateral renal pelvicalyceal system. 1.7 cm calculus within the dilated left proximal ureter. Paraspinal muscles: Fatty atrophy of posterior paraspinal muscles at L5 and S1. Sacroiliac joints: Mild to moderate bilateral degenerative changes with decreased joint space, vacuum phenomenon, subchondral sclerosis and osteophyte formation. Vertebrae: Diffuse osseous demineralization. 4.4 mm well-circumscribed sclerotic lesion in left iliac bone possibly represents a bone island. No fractures, infection or neoplasm. Degenerative changes: L1-L2: Mild degenerative disc disease. Posterior disc osteophyte complex without canal or foraminal stenosis. L2-L3: Mild degenerative disc disease. Disc bulge in combination with bilateral facet arthrosis results in mild canal stenosis. Mild bilateral foraminal stenosis. L3-L4: Mild degenerative disc disease with degenerative endplate changes, vacuum phenomena and. Disc bulge asymmetric to right effaces anterior thecal sac without significant canal stenosis. Moderate bilateral facet arthrosis. Severe right and mild left foraminal stenosis. L4-L5: Mild degenerative disc disease. Disc bulge asymmetric to right in combination with thickened ligamentum flavum and bilateral moderate facet arthrosis results in mild canal stenosis. Mild right foraminal stenosis. L5-S1: Mild degenerative disc disease. Disc bulge asymmetric to left and thickened ligamentum flavum effaces thecal sac without significant canal stenosis. Moderate to severe bilateral facet arthrosis. Mild bilateral foraminal stenosis. IMPRESSION: 1. No acute lumbar spine fracture or dislocation. 2. Loss of normal lumbar lordosis and mild levocurvature of lumbar spine. 3. Multilevel lumbar spondylosis, particularly results in mild canal stenosis at L2-L3 and L4-L5. 4. Multilevel foraminal stenosis, particularly mild bilateral at L2-L3, severe right and mild left at L3-L4, mild right at L4-L5 and bilateral mild at L5-S1. 5. Multilevel degenerative disc disease and facet arthrosis as detailed above. 6. Incidental moderate dilatation of bilateral renal pelvicalyceal system, with right renal nephrolithiasis and left proximal ureter calculus. Consider further evaluation with dedicated renal ultrasonogram or CT abdomen/pelvis per renal stone protocol if clinically indicated. 7. Ligament, spinal cord and or vascular abnormalities cannot be excluded on the basis of this examination. Signed by: Dr. Inga Marrero M.D. on 05/01/2019 10:24 PM
--- NOTE | 2019-05-02 | NUR ---
Patient in bed resting quitly.
--- NOTE | 2019-05-02 02:35 | Progress Note ---
DATE: 05/01/2019 Medicine Progress Note SUBJECTIVE: The patient is doing well today with no complaints. She seems to be much more alert on examination and the daughter kind of agrees with that as well. Still very weak in terms of ambulation. Still complains of back pain and hip pain for which I ordered a CT pelvis and lumbar spine. LAB FINDINGS: Show white count 7.9, hemoglobin 13, hematocrit 39, and platelets of 203. Chemistries reviewed and stable. MICROBIOLOGY: Blood cultures are no growth to date greater than 48 hours. Her urine culture shows evidence of contamination. IMAGING STUDIES: The CT pelvis ordered shows no acute CT abnormality. CT of the lumbar spine shows no acute lumbar spine fracture or dislocation. It shows some evidence of multilevel foraminal stenosis as well as multilevel degenerative disk disease. It also shows some moderate dilatation of the bilateral renal pelvic system. There is some evidence of right renal nephrolithiasis as well. PHYSICAL EXAMINATION: VITAL SIGNS: Temperature is 97.1, pulse is 70, respiratory rate is 19, blood pressure 121/55, pulse ox 95% on room air. GENERAL: Not in acute distress. Alert and oriented x3. Cooperative on examination HEENT: Head is normocephalic and atraumatic. Eyes; pupils are equal, round, and reactive to light bilaterally. Extraocular movements are intact bilaterally. Throat; no evidence of erythema or exudates in the posterior pharynx. Has poor dentition. NECK: Supple. Good range of motion throughout. PULMONARY: Clear to auscultation bilaterally. No wheezing, rales, or rhonchi. No crackles appreciated. CARDIOVASCULAR: Positive S1 and S2. No murmurs, rubs, or gallops. ABDOMEN: Soft, nondistended, and nontender to palpation. Bowel sounds present. MUSCULOSKELETAL: Strength is 5/5 throughout. No evidence of any muscle deficits on examination. No weakness appreciated. NEUROLOGIC: Cranial nerves II through XII grossly intact. No evidence of any neurological deficits on exam. SKIN: Intact. Warm to touch. Good cap refill. PSYCHIATRIC: Normal affect and mood. EXTREMITIES: No edema. Good range of motion throughout. IMPRESSION: 1. Metabolic encephalopathy, seems to be back to normal baseline, improving from underlying urinary tract infection. 2. Urinary tract infection. 3. History of atrial fibrillation. 4. Hypertension. 5. Generalized weakness and medical debilitation. 6. Chronic back pain. PLAN: Urine culture found to be contaminant, but likely she was already on antibiotics at home, so she could have clearly had a UTI, but was complaining of dysuria as well. Continue with IV Merrem for now. She did have Enterococcus faecalis greater than 100 colonies back on April 22 from the clinic. She is improving. We will continue with same plan of care for now. Her blood pressure is stable. Her atrial fibrillation is stable. In relation to her chronic back pain, CT pelvis was negative. CT lumbar spine showed no acute fractures, but shows evidence of degenerative disk disease pretty common for her age, but shows some dilation of the renal pelvis, which I will go ahead and get a renal ultrasound. This could explain her chronic UTIs and may need to have a Urology evaluation as well. Continue with PT and OT daily. Get a.m. labs. I discussed plan of care with the patient and daughter at bedside with nursing staff present and they seemed to have verbalized understanding and agreed with plan of care. MD OWEN Schuster/EDUIN /[id number]
[2019-05-02 04:00] VITALS: BP 147/66
[2019-05-02] MEDS: MEROPENEM 1GM 100 ML IV SCH ×3 (06:00→21:38)
[2019-05-02] MEDS: MIDODRINE 2.5 MG TAB PO SCH ×3 (06:00→17:27)
--- NOTE | 2019-05-02 06:00 | NUR ---
Patient on bedpan voiding. voided 400cc of yellow urine.
--- NOTE | 2019-05-02 07:27 | NUR ---
PATIENT IN BED RESTING WITH EYES CLOSED, NO RESPIRATORY DISTRESS OBSERVED. TELEMETRY BOX IN PLACE, IV FLUID INFUSING ORDERED. BED IN LOWER POSITION, CALL LIGHT AT REACH. FAMILY MEMBER AT BED SIDE.
[2019-05-02 07:30] VITALS: BP 131/62
[2019-05-02 07:55] VITALS: BP 131/62
[2019-05-02] MEDS: ASPIRIN 81 MG CHEW TAB PO SCH (09:03)
[2019-05-02] MEDS: DULOXETINE HCL 30 MG DELAYED RELEASE PO SCH ×2 (09:03→17:27)
[2019-05-02] MEDS: METOPROLOL SUCCINATE 50 MG TAB XL PO SCH (09:04)
[2019-05-02] MEDS: ACETAMINOPHEN 325 MG TAB PO PRN ×2 (09:05→17:35)
--- NOTE | 2019-05-02 11:43 | NUR ---
PATIENT ASSISTED TO THE RESTROOM AND BACK TO BED. VOIDED LARGE AMOUNT OF YELLOW URINE. IN BED WITH CALL LIGHT AT REACH.
[2019-05-02 11:44] VITALS: BP 135/63
[2019-05-02] MEDS: SODIUM CHLORIDE 0.9% 1000ML 1,000 ML IV SCH (13:20)
[2019-05-02] MEDS ORDERED: BISACODYL 10 MG SUPP PR NR (14:15)
[2019-05-02] MEDS ORDERED: DOCUSATE SODIUM LIQD 100 MG/10 ML UDC NG NR (14:30)
[2019-05-02] MEDS ORDERED: POLYETHYLENE GLYCOL 3350 17 GM PACK PO NR (14:30)
[2019-05-02] MEDS ORDERED: DOCUSATE SODIUM 100 MG CAP PO NR (14:45)
[2019-05-02 16:01] VITALS: BP 151/88
--- NOTE | 2019-05-02 16:46 | NUR ---
PATIENT C/O CONSTIPATION. MD NOTIFIED, NEW ORDERS RECEIVED AND IMPLEMENTED WITH POSITIVE RESULT. HAD A LARGE BM. IN BED WITH CALL LIGHT AT REACH.
--- NOTE | 2019-05-02 17:13 | Progress Note ---
DATE: 05/02/2019 Medicine Progress Note SUBJECTIVE: The patient is complaining of constipation today. Stool softeners have been ordered as well as a suppository. No overnight events. I spoke with the patient and the daughter at bedside and explained plan of care. PHYSICAL EXAMINATION: VITAL SIGNS: Temperature is 97, pulse 64, respirations 18, blood pressure 134/63, pulse ox 93% on room air. GENERAL: Not in acute distress. Alert and oriented x3. Cooperative on examination. HEENT: Head normocephalic, atraumatic. . Eyes; pupils are equal, round, and reactive to light bilaterally. Extraocular movements are intact bilaterally. Throat, no evidence of erythema or exudates in the posterior pharynx. Has poor dentition. NECK: Supple. Good range of motion throughout. PULMONARY: Clear to auscultation bilaterally. No wheezing, rales, or rhonchi. No crackles appreciated. CARDIOVASCULAR: Positive S1 and S2. No murmurs, rubs, or gallops. ABDOMEN: Soft, nondistended, and nontender to palpation. Bowel sounds present. MUSCULOSKELETAL: Strength is 5/5 throughout. No evidence of any muscle deficits on examination. No weakness appreciated. NEUROLOGIC: Cranial nerves II through XII grossly intact. No evidence of any neurological deficits on exam. SKIN: Intact. Warm to touch. Good cap refill. PSYCHIATRIC: Normal affect and mood. EXTREMITIES: No edema. Good range of motion throughout. LABORATORY DATA: Lab findings show CBC, none. Chemistry none. IMPRESSION: 1. Metabolic encephalopathy, back to normal baseline, likely secondary to urinary tract infection. 2. Urinary tract infection. 3. History of atrial fibrillation. 4. Hypertension. 5. Generalized weakness with medical debilitation. 6. Chronic back pain. PLAN: At this time, urine culture was a contaminant, but we will continue with antibiotics and discharge on either fluoroquinolone or cephalosporin. She is currently doing well, back to normal baseline it seems according to the daughter at bedside. Her heart rate is controlled. Continue with rate control medications. Blood pressure stable. Continue working with aggressive PT and OT. I did discuss with the patient and the daughter at bedside about long term facility and they seemed to have agreed to our facility. We will put an order for Case Management to arrange for long term facility. In relation to her constipation, we will give Dulcolax suppository, MiraLAX as well as Colace. The patient reports she is severely constipated. The patient is currently doing well with no other issues. We will continue same plan of care. MD OWEN Schuster/EDUIN /[id number]
[2019-05-02] MEDS: ENOXAPARIN SOD INJ 40 MG/0.4 ML SYR SC SCH (17:24)
[2019-05-02] MEDS: DRONEDARONE 400 MG TAB PO SCH (17:27)
[2019-05-02 19:34] VITALS: BP 151/88
--- NOTE | 2019-05-02 19:36 | NUR ---
RECEIVED PT IN BED AOX3 SLEEPING.DENIES .TELE #3 PACING .CALL LIGHT WITH IN REACH .CONTINUE TO MONITOR
[2019-05-02] MEDS: HYDROCODONE/APAP 5MG-325MG TAB PO PRN (21:40)
[2019-05-03] VITALS (8 sets, daily range): BP systolic 112–137; BP diastolic 58–89
--- NOTE | 2019-05-03 04:56 | NUR ---
PT HAS GONE TO THE RESTROOM X5 .NO ACUTE DISTRESS NOTED .CALL LIGHT WITH IN REACH .FAMILY AT THE BEDSIDE CONTINUE TO MONITOR
[2019-05-03] MEDS: MIDODRINE 2.5 MG TAB PO SCH ×3 (05:08→17:49)
[2019-05-03 05:51] LABS: BASOPHILS % 0.4 % (0.0-1.0); EOSINOPHILS # (AUTO) 0.4 (0.0-0.4); EOSINOPHILS % 4.8 % (0.0-6.0); HEMATOCRIT 41.3 % (34.2-44.1); HEMOGLOBIN 13.7 g/dL (12.0-16.0); LYMPHOCYTES # (AUTO) 3.2 (1.0-3.2); LYMPHOCYTES % 38.9 % (18.0-39.1); MEAN CORPUSCULAR HEMOGLOBIN 31.4 pg (28-32); MEAN CORPUSCULAR HGB CONC 33.2 g/dL (31-35); MEAN CORPUSCULAR VOLUME 94.5 fL (81-99); MONOCYTES # (AUTO) 0.7 (0.2-0.8); MONOCYTES % 8.9 % (4.4-11.3); NEUTROPHILS # (AUTO) 3.9 (2.1-6.9); NEUTROPHILS % 46.6 % (38.7-80.0); PLATELET COUNT 241 x10e3/uL (140-360); RED BLOOD COUNT 4.37 x10e6/uL (3.6-5.1); RED CELL DISTRIBUTION WIDTH 13.6 % (11.7-14.4)
[2019-05-03 06:13] LABS: ANION GAP 14.3 mmol/L (8-16); BLOOD UREA NITROGEN 12 mg/dL (7-26); BUN/CREATININE RATIO 14 (6-25); CALCIUM 10.5 mg/dL (8.4-10.2); CARBON DIOXIDE 22 mmol/L (22-29); CHLORIDE 109 mmol/L (98-107); CREATININE, SERUM 0.88 mg/dL (0.57-1.11); EST GLOMERULAR FILTRATION RATE > 60 ML/MIN (60-); GLUCOSE 98 mg/dL (74-118); POTASSIUM 4.3 mmol/L (3.5-5.1); SODIUM 141 mmol/L (136-145)
[2019-05-03] MEDS: MEROPENEM 1GM 100 ML IV SCH ×3 (06:20→22:34)
--- NOTE | 2019-05-03 06:54 | NUR ---
BEDSIDE REPORT GIVEN TO THE ONCOMING NURSE
--- NOTE | 2019-05-03 07:21 | NUR ---
PATIENT IN BED RESTING WITH NO RESPIRATORY DISTRESS. REQUESTED AND RECEIVED A CUP OF COFFEE. BED IN LOWER POSITION, CALL LIGHT AT REACH.
--- NOTE | 2019-05-03 08:31 | Diagnostic Imaging Report ---
EXAM: US RENAL RETROPERITONEAL COMP DATE: 05/02/2019 12:00 AM INDICATION: Dilated renal pelvis series, nephrolithiasis on recent CT COMPARISON: CT from 05/01/2019 FINDINGS: Please note that the examination was performed on 05/02/2019 but was only made available for interpretation on 05/03/2019. The right kidney is normal in size measuring 11.6 x 4.5 x 4.5 cm with cortical thickness of 1.2 cm. Cortical echogenicity is within normal limits. There is no evidence for solid renal mass, hydronephrosis, or shadowing calculi within the right kidney. Both kidneys normal in size measuring 10.8 x 5.5 x 4.5 cm with cortical thickness of 1.1 cm. Cortical echogenicity is within normal limits. There is a 1.3 x 1.5 x 1.8 cm cyst identified arising off the interpolar region of the left kidney. Additionally, there is a shadowing stone identified within the left renal pelvis/proximal ureter measuring up to 1.8 cm. There is mild dilatation of the left renal pelvis/ureter without true intrarenal hydronephrosis. The partially distended urinary bladder is unremarkable. Prevoid volume is 125 cc. Bilateral ureteral jets are noted. IMPRESSION: Prominent stone identified within the left renal pelvis/proximal ureter with mild dilatation of the left renal pelvis. No true intrarenal hydronephrosis is present. Unremarkable sonographic appearance of the right kidney. Signed by: Dr. Zac Aviles MD on 05/03/2019 8:27 AM
[2019-05-03] MEDS: ACETAMINOPHEN 325 MG TAB PO PRN (08:50)
[2019-05-03] MEDS: ASPIRIN 81 MG CHEW TAB PO SCH (09:57)
[2019-05-03] MEDS: DULOXETINE HCL 30 MG DELAYED RELEASE PO SCH ×2 (09:57→17:48)
[2019-05-03] MEDS: DRONEDARONE 400 MG TAB PO SCH ×2 (09:57→17:48)
[2019-05-03] MEDS: METOPROLOL SUCCINATE 50 MG TAB XL PO SCH (09:58)
--- NOTE | 2019-05-03 11:46 | NUR ---
PATIENT ASSISTED TO THE BED SIDE COMMODE AND BACK TO BED. HAD A LARGE BM. IN BED WITH CALL LIGHT AT REACH.
[2019-05-03] MEDS: HYDROCODONE/APAP 5MG-325MG TAB PO PRN ×2 (12:20→20:34)
--- NOTE | 2019-05-03 14:58 | NUR ---
MD IN TO SEE PATIENT, PATIENT C/O PAIN TO BACK THAT COMES AND GOES. NEW ORDERS RECEIVED.
[2019-05-03] MEDS: LIDOCAINE 5% PATCH TP SCH (15:48)
--- NOTE | 2019-05-03 16:04 | Progress Note ---
DATE: 05/03/2019 Medicine Progress Note SUBJECTIVE: The patient is doing much better today with no complaints. She has had several bowel movements after given stool softeners. She reports her back is still hurting her despite now. She does agree to [facility] when the family initially did not want it. They had picked a halfway facility, which we are now currently waiting on. PHYSICAL EXAMINATION: VITAL SIGNS: Temperature 95.8, pulse 63, respiratory rate is 17, blood pressure 132/89, pulse ox 96% on room air. GENERAL: Not in acute distress. Alert and oriented x3. Cooperative on examination. HEENT: Head; normocephalic, atraumatic. Eyes; pupils are equal, round, and reactive to light bilaterally. Extraocular movements are intact bilaterally. Throat; no evidence of erythema or exudates in the posterior pharynx. Has poor dentition. NECK: Supple. Good range of motion throughout. PULMONARY: Clear to auscultation bilaterally. No wheezing, rales, or rhonchi. No crackles appreciated. CARDIOVASCULAR: Positive S1 and S2. No murmurs, rubs, or gallops. ABDOMEN: Soft, nondistended, and nontender to palpation. Bowel sounds present. MUSCULOSKELETAL: Strength is 5/5 throughout. No evidence of any muscle deficits on examination. No weakness appreciated. NEUROLOGIC: Cranial nerves II through XII grossly intact. No evidence of any neurological deficits on exam. SKIN: Intact. Warm to touch. Good cap refill. PSYCHIATRIC: Normal affect and mood. EXTREMITIES: No edema. Good range of motion throughout. LABORATORY DATA: Lab findings show white count of 8.3, hemoglobin 13.7, hematocrit is 41, platelets of 241. Chemistry; sodium 141, potassium 4.3, chloride 109, bicarb 22, anion gap of 14, BUN is 12, creatinine is 0.88, glucose is 98, calcium is 10.5, albumin 3.9. MICROBIOLOGY: Urine culture showed contamination. Blood cultures were negative. IMAGING STUDIES: Renal ultrasound shows prominent stone identified in the left renal pelvis, proximal ureter with dilatation of the left renal pelvis. No true intrarenal hydronephrosis is present. Otherwise, seems to be a normal renal ultrasound. Both kidneys were measured at 10.[address] lumbar spine reviewed with the family. IMPRESSION: 1. Metabolic encephalopathy, now improved back to normal baseline, likely due to urinary tract infection. 2. Urinary tract infection. 3. History of atrial fibrillation. 4. Hypertension. 5. Generalized weakness and medical debilitation. 6. Chronic back pain, likely to be all from central canal stenosis and underlying osteoarthritis. PLAN: At this time urine culture was found to be contaminant, but the patient seems to have improved tremendously on current antibiotic therapy plus the patient was on antibiotics prior to coming so it could be a steroid urine sample. Continue with same antibiotics and discharged on oral either fluoroquinolone or cephalosporin. She is currently doing well. She reports yesterday that her back was better today. Her daughter states her back is worse. I am not sure who is truly telling me the truth in terms of the back pain despite yesterday she was fine and today she is not. I will go ahead and just get a Neurosurgery consult. I am not sure that they will do anything for this patient considering her age, but it does not seem I am able to convince the daughter or the patient, this is all likely to be chronic osteoarthritis and considering her age, probably pain management to be the only option for her, but since I cannot convince them, I will go ahead and just get a consult and have them come and evaluate her. We will continue with aggressive PT and OT. Case Management has already talked to them about halfway facility placement, which they have picked [facility]. We will continue with same plan of care and monitor closely. She has had several bowel movements. We will go ahead and get morning labs. MD OWEN Schuster/EDUIN /[id number]
[2019-05-03] MEDS: ENOXAPARIN SOD INJ 40 MG/0.4 ML SYR SC SCH (17:49)
--- NOTE | 2019-05-03 19:54 | NUR ---
PT IS SITTING IN THE CHAIR WITH FAMILY PRIVATE SITTER AT BEDSIDE. RESPIRATION IS EVEN AND UNLABORED, NO DISTRESS NOTED. BED IN THE LOWEST POSITION, LOCKED, AND CALL LIGHT WITHIN REACH. WILL CONTINUE TO MONITOR.
[2019-05-04] VITALS (7 sets, daily range): BP systolic 132–155; BP diastolic 65–87
[2019-05-04] MEDS: SODIUM CHLORIDE 0.9% 1000ML 1,000 ML IV SCH ×2 (02:49→05:20)
[2019-05-04] MEDS: HYDROCODONE/APAP 5MG-325MG TAB PO PRN ×4 (02:50→23:03)
[2019-05-04 05:51] LABS: BASOPHILS % 0.7 % (0.0-1.0); EOSINOPHILS # (AUTO) 0.4 (0.0-0.4); EOSINOPHILS % 6.4 % (0.0-6.0); HEMATOCRIT 39.6 % (34.2-44.1); HEMOGLOBIN 12.8 g/dL (12.0-16.0); LYMPHOCYTES # (AUTO) 2.7 (1.0-3.2); MEAN CORPUSCULAR HEMOGLOBIN 31.4 pg (28-32); MEAN CORPUSCULAR HGB CONC 32.3 g/dL (31-35); MEAN CORPUSCULAR VOLUME 97.1 fL (81-99); MONOCYTES # (AUTO) 0.6 (0.2-0.8); MONOCYTES % 11.1 % (4.4-11.3); NEUTROPHILS # (AUTO) 2.1 (2.1-6.9); NEUTROPHILS % 35.5 % (38.7-80.0); PLATELET COUNT 192 x10e3/uL (140-360); RED BLOOD COUNT 4.08 x10e6/uL (3.6-5.1); RED CELL DISTRIBUTION WIDTH 13.6 % (11.7-14.4)
[2019-05-04 06:24] LABS: ANION GAP 11.1 mmol/L (8-16); BLOOD UREA NITROGEN 12 mg/dL (7-26); BUN/CREATININE RATIO 15 (6-25); CALCIUM 9.7 mg/dL (8.4-10.2); CARBON DIOXIDE 26 mmol/L (22-29); CHLORIDE 102 mmol/L (98-107); EST GLOMERULAR FILTRATION RATE > 60 ML/MIN (60-); GLUCOSE 85 mg/dL (74-118); POTASSIUM 4.1 mmol/L (3.5-5.1); SODIUM 135 mmol/L (136-145)
[2019-05-04] MEDS: MEROPENEM 1GM 100 ML IV SCH ×3 (06:35→21:55)
[2019-05-04] MEDS: MIDODRINE 2.5 MG TAB PO SCH ×3 (06:35→17:44)
[2019-05-04] MEDS: METOPROLOL SUCCINATE 50 MG TAB XL PO SCH (09:00)
[2019-05-04] MEDS: LIDOCAINE 5% PATCH TP SCH (09:00)
[2019-05-04] MEDS ORDERED: IOPAMIDOL 200 MG/ML 20 ML VIAL IT ONE (09:23)
[2019-05-04] MEDS ORDERED: LIDOCAINE HCL 1% LOCAL INJ 20 ML VIAL ONE (09:23)
[2019-05-04] MEDS: DULOXETINE HCL 30 MG DELAYED RELEASE PO SCH ×2 (09:44→17:44)
[2019-05-04] MEDS: ASPIRIN 81 MG CHEW TAB PO SCH (09:44)
[2019-05-04] MEDS: DRONEDARONE 400 MG TAB PO SCH ×2 (09:46→17:44)
--- NOTE | 2019-05-04 09:54 | NUR ---
INTERMEDIATE FACILITY DISCHARGE INFORMATION PATIENT HAS BEEN ACCEPTED TO: NAME: KELLI MORENO ADDRESS: [address] [place] [address] ACCEPTING MD: AMY ROOM:[id number] NURSE CALL REPORT TO: [phone]
--- NOTE | 2019-05-04 10:24 | NUR ---
Patient alert and responsive, picked up for procedure this morning
--- NOTE | 2019-05-04 12:19 | Diagnostic Imaging Report ---
Fluoroscopic-guided lumbar myelogram. History: Back pain. Medication: 5 cc of 1% lidocaine without epinephrine. Contrast: 10 cc of on the 200. EBL: < 1 ml. Specimen: None. Fluoro time: 0.6 min. Dose: 1.34 mGy (CARLEEN) Discussion: After informed consent was obtained, the patient's back was prepped and draped in a sterile fashion. The skin was anesthetized with 1% lidocaine without epinephrine. Using fluoroscopic guidance, a 22-gauge, 3.5 inch spinal needle was advanced into the thecal sac at the level of L5-S1. Clear colorless CSF was obtained. The contrast was injected and the needle was removed. The patient was then sent to CT for scanning. The patient tolerated procedure well without evidence of immediate complication. IMPRESSION: 1. Successful fluoroscopic guided lumbar myelogram. 2. Please see CT of the lumbar spine performed immediately after. Signed by: Dr. Zac Aviles MD on 05/04/2019 12:15 PM
--- NOTE | 2019-05-04 14:55 | Diagnostic Imaging Report ---
History: Back pain. Claustrophobia. Comparison studies:Preceding myelogram. Technique: Axial images were obtained through the lumbar region. Coronal and sagittal images reconstructed from the axial data. Intrathecal contrast: See myelogram report. Dose modulation, iterative reconstruction, and/or weight based adjustment of the mA/kV was utilized to reduce the radiation dose to as low as reasonably achievable. Findings: Number of non-rib bearing lumbar vertebral bodies: 5. Alignment: Normal lordosis. Smooth S-shaped scoliosis with dextrocurvature centered at L1 and levocurvature centered at L4. . Soft tissues: No prior spinal abnormalities . Atherosclerotic calcifications of the abdominal aorta. Nonobstructing stone measuring 1 cm at the right renal pelvis Paraspinal muscles: Mild fatty infiltration of the paraspinal musculature secondary to mild atrophy Lower thoracic spinal cord: Well-visualized. The tip of the conus is at L1 superior endplate. Sacroiliac joints: No abnormalities. Vertebrae: No fractures, infection or neoplasm. Degenerative changes: L1-L2: Patent canal and foramina L2-L3: Disc degeneration with decreased intervertebral space and minimal vacuum disc phenomenon. Asymmetric right disc bulge with superimposed right central and subarticular disc protrusion results in severe canal stenosis and mild bilateral foraminal narrowing. Mild facet hypertrophy contributes to the stenosis. L3-L4: Disc degeneration with decreased intervertebral space and L4 superior endplate subcentimeter Schmorl node. Diffuse disc bulge and mild facet hypertrophy results in mild canal stenosis, mild right and moderate left foraminal narrowing L4-L5: Disc degeneration with vacuum disc phenomenon. Diffuse disc bulge moderate facet hypertrophy results in mild canal stenosis and mild bilateral foraminal narrowing more prominent on the right L5-S1: Disc degeneration with vacuum disc phenomenon and decreased intervertebral space. Diffuse disc bulge and mild facet hypertrophy results in no significant canal stenosis, and severe bilateral foraminal narrowing IMPRESSION: 1. Severe degenerative canal stenosis at L2-L3, right central and subarticular disc protrusion contributes to the stenosis. 2. Severe degenerative bilateral foraminal narrowing at L5-S1. Moderate degenerative foraminal narrowing at L3-L4 on the left. Mild degenerative bilateral foraminal narrowing at L4-L5. 3. Right nonobstructing nephrolithiasis. Signed by: DR Rowdy Ceja M.D. on 05/04/2019 2:52 PM
--- NOTE | 2019-05-04 15:27 | NUR ---
IMM LETTER EXPLAINED TO PT. PT VERBALIZED UNDERSTANDING. IMM LETTER SIGNED. COPY TO PT AND COPY TO CHART.
[2019-05-04] MEDS ORDERED: ONDANSETRON HCL 4 MG ORAL DISINTEGRATING TAB PO PRN (15:30)
--- NOTE | 2019-05-04 15:47 | NUR ---
Call to Dr. Ding to report results of CT spine, waiting for call back
[2019-05-04] MEDS ORDERED: Lidocaine Patch TP (16:26)
[2019-05-04] MEDS: ENOXAPARIN SOD INJ 40 MG/0.4 ML SYR SC SCH (16:37)
--- NOTE | 2019-05-04 17:54 | NUR ---
Rounds by Dr. Ding and will complete spinal surgery tomorrow.
--- NOTE | 2019-05-04 19:35 | Progress Note ---
DATE: 05/04/2019 Medicine Progress Note SUBJECTIVE: The patient is doing well today with no complaints. Apparently, Neurosurgery ordered a CT myelogram that was performed before I even came to evaluate the patient today. It was performed by Interventional Radiology. I was not aware that this patient was going to have a CT myelogram that was ordered. She is otherwise doing well with no complaints. I had a long discussion with the daughter at bedside and awaiting for Neurosurgery evaluation. PHYSICAL EXAMINATION: VITAL SIGNS: Temperature is 98.5, pulse 67, respiratory rate is 17, blood pressure 148/87, and pulse ox 96% on room air. GENERAL: Not in acute distress. Alert and oriented x3. Cooperative on examination. HEENT: Head; normocephalic, atraumatic. Eyes; pupils are equal, round, and reactive to light bilaterally. Extraocular movements intact bilaterally. Throat; no evidence of erythema or exudates in the posterior pharynx. Has poor dentition. NECK: Supple. Good range of motion. PULMONARY: Clear to auscultation bilaterally. No wheezing, no rales, no rhonchi, no crackles appreciated. CARDIOVASCULAR: Positive S1 and S2. No murmurs, rubs, or gallops appreciated. ABDOMEN: Soft, nondistended, and nontender to palpation. Bowel sounds present. MUSCULOSKELETAL: Strength is 5/5 throughout. No evidence of any muscle deficits on examination. No weakness appreciated. NEUROLOGIC: Cranial nerves II through XII grossly intact. No evidence of any neurological deficits on exam. SKIN: Intact. Warm to touch. Good cap refill. PSYCHIATRIC: Normal affect and mood. EXTREMITIES: No edema. Good range of motion throughout. LABORATORY FINDINGS: Show white count was 5.7, hemoglobin is 12.8, hematocrit is 39.6, and platelets of 192. Coags are within normal range. Chemistry; sodium 135, potassium 4.1, chloride 102, bicarbonate 26, anion gap of 11, BUN is 12, creatinine is 0.80, and calcium is 9.7. MICROBIOLOGY: Blood and urine cultures were negative. IMAGING STUDIES: CT myelogram performed of the lumbar spine shows severe degenerative canal stenosis of L2-L3, right central and subarticular disk protrusion contributing to stenosis. Severe degenerative bilateral foraminal narrowing at L5-S1. Moderate degenerative foraminal narrowing at L3-L4 on the left. Mild degenerative bilateral foraminal narrowing at L4-L5. There is a right nonobstructing nephrolithiasis. IMPRESSION: 1. Metabolic encephalopathy, likely due to urinary tract infection, resolved. 2. Urinary tract infection. 3. Atrial fibrillation. 4. Hypertension. 5. Generalized weakness and medical debilitation. 6. Chronic back pain, concerns for underlying central canal stenosis and underlying osteoarthritis. PLAN: At this time, continue with antibiotics for now. Discharge to longterm facility at some point on oral antibiotics. I am now waiting for Neurosurgery's final recommendations and evaluation, which the daughter is waiting closely. CT myelogram was performed today and was ordered before I came and evaluated the patient. At this time, continue with PT and OT. Continue with same medications for now with no changes. I had a long discussion in terms of the pain medication. First, the daughter did not want Alfred several days ago and which we discontinued, put her on some Tylenol and that she continues to complain of pain, then the daughter wanted us to put her back on Alfred and now, the daughter states that the Alfred makes her confused and she does not know what to do. I am not sure what the daughter truly wants. She has chronic pain and all pain medications as I describe to her can cause confusion. At this time, I do not understand if the daughter truly understands that her mom likely has some baseline dementia and some forgetfulness and that some pain medications can contribute to her worsening thinking. At this time, I am going to continue to monitor overnight, await for Neurosurgery evaluation. I have the daughter speak to Neurosurgery and hopefully, we can discharge tomorrow after being cleared and go to longterm facility. MD OWEN Schuster/INGRIDL /[id number]
--- NOTE | 2019-05-04 19:37 | NUR ---
Received change of shift report from AM nurse. Walking rounds completed.
--- NOTE | 2019-05-04 22:32 | NUR ---
Patient AAOx2 with forgetfulness. Up out of bed to bedside commode. Daughter at bedside. Pain med given by AM nurse. Patient requesting more pain med. Asst patient to reposition in bed.
[2019-05-05] VITALS (9 sets, daily range): BP systolic 140–181; BP diastolic 63–103
--- NOTE | 2019-05-05 00:22 | Consultation ---
DATE OF CONSULTATION: 05/04/2019 REASON FOR CONSULTATION: Low back and right leg pain. HISTORY OF PRESENT ILLNESS: The patient is an 83-year-old woman, who presents with acute severe low back pain radiating to the right groin, right anterior thigh as far as the knee for the past 3 weeks. She has been to the emergency room on several different occasions and has been treated with various pain medications without benefit. She was admitted to the hospital several days ago when she could no longer bear weight on her leg and walk. Her knee has buckled on a couple of occasions and she has nearly fallen. She states that for the past 2 days, she has had 2 episodes of urinary incontinence when she felt a sudden urge to urinate and could not hold her urine. She denies any numbness around the genitalia. She has numbness along the anterior aspect of the right thigh. Because of a pacemaker, she could not have an MRI. She had a CT of the lumbar spine yesterday and I was consulted. I ordered a CT myelogram, which was performed today and I saw her immediately after the CT myelogram. PHYSICAL EXAMINATION: The patient is alert and lucid in her hospital bed. She can sit with great difficulty on the edge of the bed and can stand with great pain and just take a couple of steps with a walker. There is 4/5 weakness of the right quadriceps. Straight leg raising is positive on the right at 30 degrees. The femoral station is markedly positive on the right. There is numbness over the anterior aspect of the right thigh. Deep tendon reflexes are absent in the right patellar tendon, 1+ in the left the patella tendon, and absent in both Achilles tendons. Plantar responses are flexor. IMAGING STUDIES: CT myelogram of the lumbar spine reveals a very large right paracentral disk herniation at L2-L3, which is superimposed on concentric spinal stenosis due to ligamentous and facet hypertrophy. This produces marked attenuation of the contrast column and compression of the cauda equina. Large right paracentral L2-L3 disk herniation superimposed on pre-existing L2-L3 spinal stenosis, symptomatic with severe right L3 radiculopathy and 2 episodes of urinary incontinence. PLAN: I recommend right L2-L3 laminotomy and microsurgical diskectomy. During that operation, I may be able to reach from [id number] through unilateral laminotomy and decompress the contralateral lateral recess as well. The risks, benefits, and alternatives were explained to the patient and her daughter in great detail including risks of infection, bleeding, CSF leakage, persistent pain, numbness, or weakness and the possibility of recurrent disk herniation. She fully understands all these issues and gives informed consent to proceed with surgery. The plan to proceed with surgery tomorrow morning. She can be transferred to rehab the following day. Esteban Ding MD PP/EDUIN /[id number]
[2019-05-05] MEDS: HYDROCODONE/APAP 5MG-325MG TAB PO PRN ×2 (02:46→06:47)
[2019-05-05] MEDS: MEROPENEM 1GM 100 ML IV SCH ×3 (05:52→22:00)
[2019-05-05] MEDS: MIDODRINE 2.5 MG TAB PO SCH ×3 (05:53→17:00)
[2019-05-05] MEDS: SODIUM CHLORIDE 0.9% 1000ML 1,000 ML IV SCH ×2 (06:00→07:00)
[2019-05-05] MEDS ORDERED: BUPIVACAINE 0.5%/EPI 30 ML SDV INJ ONE (06:53)
[2019-05-05] MEDS ORDERED: THROMBIN FOR SOLN 5,000 UNIT VIAL ONE (06:53)
[2019-05-05] MEDS ORDERED: BACITRACIN 50,000 UNIT VIAL ONE (06:54)
[2019-05-05] MEDS ORDERED: ACETAMINOPHEN 1000 MG/100 ML 100 ML IV ONE (07:43)
[2019-05-05] MEDS ORDERED: IBUPROFEN 800MG/ 250ML 250 ML IV ONE (07:44)
[2019-05-05] MEDS ORDERED: LIDOCAINE HCL (LTA) 4 ML SOLN ONE (07:44)
[2019-05-05] MEDS: ASPIRIN 81 MG CHEW TAB PO SCH (09:00)
[2019-05-05] MEDS ORDERED: LACTATED RINGER'S 1,000 ML IV SCH ×2 (11:07→17:15)
[2019-05-05] MEDS ORDERED: PROMETHAZINE HCL (IM) 25 MG/ML VIAL IM PRN (11:15)
[2019-05-05] MEDS ORDERED: OXYCODONE/ACETAMINOPHEN 5-325 1 EACH TABLET PO PRN (11:15)
[2019-05-05] MEDS ORDERED: HYDROMORPHONE 2MG/ML 2 MG/ML ML IV PRN (11:15)
[2019-05-05] MEDS ORDERED: MAGNESIUM/ALUMINUM/SIMETHICONE 30 ML UDC PO PRN (11:15)
[2019-05-05] MEDS ORDERED: CARISOPRODOL 350 MG TAB PO PRN (11:15)
[2019-05-05] MEDS ORDERED: ACETAMINOPHEN 325 MG TAB PO PRN (11:15)
[2019-05-05] MEDS ORDERED: MORPHINE SULFATE 5 MG/ML VIAL IM PRN (11:15)
[2019-05-05] MEDS ORDERED: ONDANSETRON HCL INJ 2MG/ML 2ML 2 MG/ML VIAL IV PRN (11:15)
[2019-05-05] MEDS: LIDOCAINE 5% PATCH TP SCH (13:00)
[2019-05-05] MEDS: DULOXETINE HCL 30 MG DELAYED RELEASE PO SCH ×2 (13:01→17:00)
[2019-05-05] MEDS: METOPROLOL SUCCINATE 50 MG TAB XL PO SCH (13:02)
[2019-05-05] MEDS: DRONEDARONE 400 MG TAB PO SCH ×2 (13:02→17:00)
[2019-05-05] MEDS: CEFAZOLIN SOD 1 GM/NS 50ML 50 ML IV SCH ×2 (16:03→21:15)
--- NOTE | 2019-05-05 16:21 | Operative Report ---
DATE OF PROCEDURE: 05/05/2019 SURGEON: Esteban Ding MD PREOPERATIVE DIAGNOSES: L2-L3 disk herniation and severe spinal stenosis with radiculopathy, and cauda equina compression, M51.16, M48.062. POSTOPERATIVE DIAGNOSES: L2-L3 disk herniation and severe spinal stenosis with radiculopathy, and cauda equina compression, M51.16, M48.062. PROCEDURES: 1. Right L2-L3 laminotomy, medial facetectomy, and microsurgical diskectomy, 41242. 2. Left L2-L3 microsurgical lateral recess decompression through right-sided unilateral laminotomy, 04589. ANESTHESIA: General. INDICATIONS: The patient is an 83-year-old woman, who presents with severe right L3 radiculopathy and two episodes of urinary incontinence. She is found to have a large L2-L3 disk herniation superimposed on preexisting severe spinal stenosis. She was taken to the operating room for decompression of the L2-L3 segment. DESCRIPTION OF PROCEDURE: After induction of general anesthesia, the patient was placed on the operating table in prone position over Ricki frame. Lumbar region was prepped and draped in sterile fashion. A preoperative x-ray was obtained. A small midline incision was created. Lumbar fascia was opened to the right of midline and a subperiosteal dissection was carried out to expose the underlying laminae. A second x-ray revealed localization at L1-L2, one segment was counted below this segment to expose the L2-3 segment. The operating microscope was brought in. A high-speed drill equipped with sera bur was used to drill the inferior aspect of the lamina of L2 and the superior rim of the lamina of L3, and the medial aspect of the L2-L3 hypertrophic facet joint. The markedly hypertrophic ligamentum flavum was resected on the right side until the right side of the dura and the right L3 traversing nerve root were exposed. The dura was then slightly retracted medially. The underlying disk herniation came into view. A ball probe was passed into the ventral epidural space to retrieve the extruded disk material, which was then grasped with a micropituitary rongeur and removed. The opening into the annulus of the disk was then enlarged with a #11 blade and the loose contents of the degenerated disk were conservatively evacuated with curettes and pituitary rongeurs. Attention was then directed to the contralateral side. The operating table was tilted to the left. The base of the spinous processes of L2 and L3 were drilled with a sera bur. The ligamentum flavum on the contralateral side was dissected free of the overlying laminae with a [place] 4 instrument and resected in a careful fashion with a 2 mm Kerrison rongeur until the contralateral L3 lateral recess was reached through a unilateral right-sided laminotomy. Excellent decompression was thus achieved. The wound was irrigated with bacitracin solution. Meticulous hemostasis was secured. The bony edges were waxed with bone. The dura was covered with a layer of Gelfoam. The lumbar fascia was closed with 0 Vicryl suture. Subcutaneous layer was closed with 2-0 Vicryl sutures. The skin was closed with 3-0 Monocryl sutures in subcuticular fashion. Steri-Strips and dressing were applied. The patient was awakened, extubated, and taken to Postanesthesia Care Unit in stable condition. No intraoperative complications were encountered. Estimated blood loss was 10 mL. Esteban Ding MD PP/EDUIN /[id number]
--- NOTE | 2019-05-05 17:26 | NUR ---
Nutrition Follow-up Note RD Recommendation for Physician: Continue diet as ordered Plan of Care: Patient has been screened and assessed for nutrition risk. At this time, the patient does not pose any nutrition risk. No further nutrition intervention is warranted at this time. Will re-evaluate if consulted by medical staff. Nutrition reason for involvement: Follow up Primary Diagnose(s): UTI PMH: Urinary tract infection, nephrolithiasis, diverticulitis status post colon resection in 2004. 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 Ht:61 in Wt:160lb BMI:30.2 kg/m2 IBW:105lb +/-10% RD Assessment: (05/05/2019) Visited pt in room. Pt was eating most of her lunch today. Pt reported poor PO intake during hospital stay as pt was upset of being on cardiac diet ordered. PCT recorded average of 75-100% of her meals. Diet has been liberalized to regular. Pt was happy. RD discussed menu options and obtained diet preferences from pt. No GI complains reported. (04/30/2019) Chart reviewed. Labs and meds reviewed. Initial encounter with patient. Pt with a good Po intake [employer]. Eating about 50% o meal tray. Pt has a top denture plate. Denies any difficulty chewing or swallowing. Denies nausea, vomiting or diarrhea. No wt changes Current Diet: Regular diet Malnutrition Evaluation (04/30/2019) The patient does not meet criteria for a specified degree of malnutrition at this time. Will re-evaluate at follow-up as appropriate. Diet Education Needs Assessment: Diet education not indicated. Nutrition Care Level: Low Signed: Oriana Clinton, MS, RD, LD
[2019-05-05] MEDS ORDERED: DEXAMETHASONE SOD PHOS INJ 4 MG/ML VIAL ONE (17:47)
[2019-05-05] MEDS ORDERED: ONDANSETRON HCL INJ 2MG/ML 2ML 2 MG/ML VIAL ONE (17:47)
[2019-05-05] MEDS ORDERED: LIDOCAINE HCL 2% LOCAL INJ 5 ML SDV VIAL INJ ONE (17:47)
[2019-05-05] MEDS ORDERED: SEVOFLURANE INHAL SOLN 250 ML PEN BTL ONE (17:47)
[2019-05-05] MEDS ORDERED: PROPOFOL IV EMULSION 10 MG/ML 20 ML VIAL ONE (17:47)
[2019-05-05] MEDS ORDERED: ROCURONIUM BROMIDE 10 MG/ML 5ML VIAL ONE (17:47)
[2019-05-05] MEDS ORDERED: LIDOCAINE HCL 2% JELLY 5 ML TUBE ONE (17:47)
[2019-05-05] MEDS ORDERED: FENTANYL CITRATE/PF 100MCG/2 ML INJ ONE (18:38)
--- NOTE | 2019-05-05 19:03 | Progress Note ---
DATE: 05/05/2019 Medicine Progress Note SUBJECTIVE: The patient underwent surgery today of her lower back. She ended up getting a laminectomy and medial facetectomy with microsurgical diskectomy. She is doing much better now with no other issues. PHYSICAL EXAMINATION: VITAL SIGNS: Temperature is 95.9, pulse 68, respirations 16, blood pressure 181/103, pulse ox is 92% on room air. This blood pressure reading was postoperatively, currently there is no updated blood pressure. GENERAL: Not in acute distress and oriented x3. Cooperative on exam. HEENT: Head is normocephalic and atraumatic. Eyes; pupils equal, round, and reactive to light bilaterally. Extraocular movements are intact. NECK: Supple. Good range of motion. Throat; no evidence of erythema or exudates in the posterior pharynx. Has poor dentition. PULMONARY: Clear to auscultation bilaterally. No wheezing, rales, or rhonchi. No crackles appreciated. CARDIOVASCULAR: Positive S1 and S2. No murmurs, rubs, or gallops appreciated. ABDOMEN: Soft, nontender, and nontender to palpation. Bowel sounds present. MUSCULOSKELETAL: Strength is 5/5 throughout. No evidence of any muscle deficits on examination. No weakness appreciated. NEUROLOGIC: Cranial nerves II through XII grossly intact. No evidence of any neurological deficits on exam. SKIN: Intact. Warm to touch. Good cap refill. PSYCHIATRIC: Normal affect and mood. EXTREMITIES: No edema. Good range of motion throughout. LABORATORY DATA: Labs show white count 5.7, hemoglobin 12, and hematocrit 39.6, platelets of 192. Chemistry; sodium 135, potassium 4.1 chloride 102, bicarb 26, anion gap of 11, BUN is 12, creatinine is 0.8, glucose is 85, calcium is 9.7. IMPRESSION: 1. Metabolic encephalopathy secondary to underlying urinary tract infection, now resolved. 2. Urinary tract infection. 3. History of atrial fibrillation. 4. Hypertension. 5. Generalized weakness with medical debilitation. 6. Status post right L2-L3 laminectomy with medial facetectomy and microsurgical diskectomy. 7. Status post left L2-L3 microsurgical lateral recess decompression through right-sided unilateral laminotomy. PLAN: At this time, continue with IV antibiotics for now. She will be discharged to care home facility with antibiotics tomorrow. In terms of her surgical procedure, she is currently doing well postoperatively. She has no other complaints at this time postop. I have discussed this case with Neurosurgery and he agreed to discharge the patient tomorrow to care home facility placement. Otherwise, the patient is currently doing well with no other issues. Otherwise, we will continue with same plan of care and monitor very closely. Plan to be discharged tomorrow to care home facility. Repeat labs. Continue with same plan of care. Monitor closely. Continue with PT and OT. Discussed plan of care with daughter. The patient with nurse present during the conversation. MD OWEN Schuster/MODL /[id number]
--- NOTE | 2019-05-05 19:10 | NUR ---
Completed BS rounds with morning nurse. Pt alert to name. Lying in bed HOB 75 degrees. Pt denies pain at this time. Family at bedside. Call within reach. Will continue to monitor.
[2019-05-05] MEDS ORDERED: ZOLPIDEM TARTRATE 5 MG TAB PO PRN (21:00)
[2019-05-06 04:13] VITALS: BP 125/62
[2019-05-06] MEDS: MIDODRINE 2.5 MG TAB PO SCH ×2 (05:28→11:30)
[2019-05-06] MEDS: CEFAZOLIN SOD 1 GM/NS 50ML 50 ML IV SCH (05:28)
[2019-05-06] MEDS: MEROPENEM 1GM 100 ML IV SCH (06:00)
--- NOTE | 2019-05-06 06:28 | NUR ---
Spoke with on-call stock parts inspector for Dr. Blackburn and informed of consult for ESRD, HD. Stated will inform Dr. Blackburn. Pt alert sitting in bed. Denies pain at this time. Bed alarm on. at bedside. Addendum: 05/06/19 at 0634 by Nain Prieto RN wrong chart
[2019-05-06 06:49] LABS: BASOPHILS % 0.1 % (0.0-1.0); EOSINOPHILS # (AUTO) 0.2 (0.0-0.4); EOSINOPHILS % 1.5 % (0.0-6.0); HEMATOCRIT 37.7 % (34.2-44.1); HEMOGLOBIN 11.9 g/dL (12.0-16.0); LYMPHOCYTES # (AUTO) 1.6 (1.0-3.2); LYMPHOCYTES % 15.7 % (18.0-39.1); MEAN CORPUSCULAR HEMOGLOBIN 31.3 pg (28-32); MEAN CORPUSCULAR HGB CONC 31.6 g/dL (31-35); MEAN CORPUSCULAR VOLUME 99.2 fL (81-99); MONOCYTES # (AUTO) 0.7 (0.2-0.8); MONOCYTES % 6.8 % (4.4-11.3); NEUTROPHILS # (AUTO) 7.6 (2.1-6.9); NEUTROPHILS % 75.6 % (38.7-80.0); PLATELET COUNT 202 x10e3/uL (140-360); RED CELL DISTRIBUTION WIDTH 13.6 % (11.7-14.4)
--- NOTE | 2019-05-06 07:00 | NUR ---
received am report from RN and morning rounds done. pt is alert resting in bed, no s/s of distress noted. call light within reach and pt instructed to call nurse for help. daughter is at the bedside.
[2019-05-06 07:05] LABS: ANION GAP 14.3 mmol/L (8-16); BLOOD UREA NITROGEN 15 mg/dL (7-26); BUN/CREATININE RATIO 19 (6-25); CALCIUM 9.3 mg/dL (8.4-10.2); CARBON DIOXIDE 21 mmol/L (22-29); CHLORIDE 106 mmol/L (98-107); CREATININE, SERUM 0.79 mg/dL (0.57-1.11); EST GLOMERULAR FILTRATION RATE > 60 ML/MIN (60-); GLUCOSE 139 mg/dL (74-118); POTASSIUM 4.3 mmol/L (3.5-5.1); SODIUM 137 mmol/L (136-145)
[2019-05-06 07:52] VITALS: BP 150/66
[2019-05-06] MEDS: DULOXETINE HCL 30 MG DELAYED RELEASE PO SCH (09:21)
[2019-05-06] MEDS: ASPIRIN 81 MG CHEW TAB PO SCH (09:21)
[2019-05-06] MEDS: DRONEDARONE 400 MG TAB PO SCH (09:25)
[2019-05-06] MEDS: METOPROLOL SUCCINATE 50 MG TAB XL PO SCH (09:25)
[2019-05-06] MEDS: LIDOCAINE 5% PATCH TP SCH (09:28)
[2019-05-06 10:14] LABS: BAND NEUTROPHILS % (MANUAL) 4 %; LYMPHOCYTES % (MANUAL) 19 % (19-48); MONOCYTES % (MANUAL) 4 % (3.4-9.0); NEUTROPHILS % (MANUAL) 73 % (40-74); PLATELET ESTIMATE ADEQUATE; PLATELET MORPHOLOGY COMMENT NORMAL; RBC MORPHOLOGY COMMENT NORMAL
[2019-05-06 11:29] VITALS: BP 146/72
--- NOTE | 2019-05-06 11:32 | NUR ---
EDUCATED ABOUT IMM, SIGNED, FILED IN CHART, WITH COPY LEFT WITH FAMILY AT BEDSIDE.
[2019-05-06] MEDS ORDERED: MORPHINE SULFATE INJ 4 MG/ML INJ 1ML IM PRN (12:30)
[2019-05-06 12:53] VITALS: BP 146/72
[2019-05-06 15:34] VITALS: BP 118/58
--- NOTE | 2019-05-07 14:47 | Discharge Summary ---
FINAL DISCHARGE DIAGNOSES: 1. Metabolic encephalopathy secondary to urinary tract infection, now resolved. 2. Urinary tract infection. 3. History of atrial fibrillation. 4. Hypertension. 5. Status post left L2-L3 laminectomy with medial facetectomy and microsurgical diskectomy. 6. Status post left L2-L3 microsurgical lateral recess decompression through right-sided unilateral laminotomy. CONSULTANTS: Neurosurgery. PHYSICAL EXAMINATION: VITAL SIGNS: Temperature is 97.8, pulse 73, respirations 19, blood pressure 118/58, and pulse ox 95% on room air. LABORATORY FINDINGS: Show white count 10, hemoglobin 11.9, hematocrit is 37, and platelets of 202. Coagulation; PT 12, INR 0.9, and PTT 25. Chemistry; sodium 137, potassium 4.3, chloride 106, bicarb 21, anion gap of 14, BUN 15, creatinine is 0.79, glucose is 139, and calcium is 9.3. Total bilirubin is 1, AST is 27, ALT is 20, and alkaline phosphatase is 68. Troponins were negative. Total protein 7.1 and albumin is 3.9. Urinalysis concerning for UTI or urine culture showed no growth, shows mixed contamination, but the patient was on antibiotics at home. We discharged on oral Omnicef. Blood cultures were negative greater than 5 days. IMAGING STUDIES: CT brain shows no acute intracranial abnormality. CT pelvis, no acute CT abnormality. CT lumbar spine, no acute lumbar spine fracture or dislocation. There is multilevel lumbar spondylosis particularly resulted in mild canal stenosis at L2-L3 and L4-L5. Multilevel foraminal stenosis L2-L3 and severe right and mid left L3-L4. Mild right L4-L5 and bilateral mild L5-S1. Multilevel degenerative disk disease. There is some evidence of some dilation of the bilateral renal pelvicalyceal system seen. There is some right nephrolithiasis in the right renal pelvis. Renal ultrasound shows a right kidney 11.6 cm and left kidney was 10.8 cm. Prominent stone identified within the left renal pelvis and proximal ureter with mild dilatation of the left renal pelvis. No true intrarenal hydronephrosis is present. Unremarkable sonographic appearance of the right kidney. CT myelogram shows a clear colorless CSF with results stating severe degenerative canal stenosis at L2-L3 and right central and subarticular disk protrusion contributes to the stenosis. Severe degenerative bilateral foraminal narrowing at L5-S1. Mild degenerative foraminal narrowing at L3-L4 to the left. Mild degenerative bilateral foraminal narrowing at L4-L5. Right nonobstructing nephrolithiasis. HOSPITAL COURSE: This lady is an 83-year-old female, who was sent in by her primary care physician due to underlying altered mental status and outpatient urinary tract infection, which was diagnosed by the PCP. Apparently, she came in, failed antibiotic therapy as an outpatient and was brought in for further management and care. While here, her CT brain was found to be negative. The patient truly was never confused during my evaluation here throughout the majority of the hospital course. According to the patient and the daughter, she reports that when the patient was being transferred from bed to bed, she began to have lower back pain. According to the family and the daughter and the patient, she has had chronic back pain ongoing for several years now and it seems like it just got aggravated upon transfer. While here, further imaging studies were performed with results above in which Neurosurgery was consulted. The patient maintained on broad-spectrum antibiotics while here. Her urine culture was found to be a contaminant. Blood cultures were negative. When Neurosurgery was consulted, the patient underwent status post right L2-L3 laminectomy with medial facetectomy and microsurgical diskectomy. She also was status post left L2-L3 microsurgical lateral recess decompression through the right-sided unilateral laminotomy. The patient did well postprocedure with no complaints. She did extremely well. She worked with PT and OT. She continued with antibiotics while here. She was discharged on oral antibiotics and pain control. The patient was cleared for discharge by Neurosurgery, Dr. Ding. [facility] treatment. On the day of discharge, vital signs were stable, labs reviewed and stable. The patient is seen and evaluated and examined thoroughly on the day of discharge. No other complaints. The patient verbalized understanding and agrees to plan of care to follow up as an outpatient with the PCP in 1 week and a neurosurgeon in 2 weeks' time. The patient's symptoms all resolved. In terms of her lower back shows some mild pain, but able to ambulate with no complications. At this time, she is cleared to go discharge to [facility]. MEDICATIONS: See med reconciliation form. DISPOSITION: Home. CONDITION: Stable. DIET: Heart healthy. In the event of any worsening symptoms, the patient was advised to come back to the emergency room for further evaluation. Discharge summary took greater than 35 minutes. MD OWEN Schuster/EDUIN /[id number]
== END 2019-05-06 16:07 | DRG 981 ==
LOC: ER 16:11 → ERHOLD 21:25 → MED/SURG3 22:06 → MED/SURG 05-03 17:51 → MED/SURG3 05-03 17:52
PROVIDERS: ADMIT Internal Medicine; ATTEND Internal Medicine
PROC: 0SB20ZZ Excision of Lumbar Vertebral Disc, Open Approach (ICD-10-PCS; 2019-05-05)
PROC: 00NY0ZZ Release Lumbar Spinal Cord, Open Approach (ICD-10-PCS; 2019-05-05)
PROC: 01NB0ZZ Release Lumbar Nerve, Open Approach (ICD-10-PCS; principal; 2019-05-05 09:47)
DX: N39.0 Urinary tract infection, site not specified (principal); G93.41 Metabolic encephalopathy; I10 Essential (primary) hypertension; I48.91 Unspecified atrial fibrillation; F03.90 Unspecified dementia, unspecified severity, without behavioral disturbance, psychotic disturbance, mood disturbance, and anxiety; Z83.3 Family history of diabetes mellitus; Z82.49 Family history of ischemic heart disease and other diseases of the circulatory system; R53.1 Weakness; R53.81 Other malaise; M54.9 Dorsalgia, unspecified; M51.16 Intervertebral disc disorders with radiculopathy, lumbar region; M48.062 Spinal stenosis, lumbar region with neurogenic claudication; K59.00 Constipation, unspecified
CPT/HCPCS: 36415; 62304; 70450; 72020; 72131; 72192; 74470; 76770; 80048; 80053; 81001; 82550; 82553; 83605; 83735; 84484; 85025; 85610; 85730; 87040; 87086; 88304; 96361; 97139; 99284; J0690; J1100; J1650; J2001; J2405; J3010; J7030; J7121; Q9967